=== PATIENT | female | born 1985 | race Caucasian/White ===

== ENCOUNTER → 2020-03-31 | Outpatient (CLI) | payer BC, SELFPAY ==
[2019-08-01 12:34] VITALS: BMI 29.2
[2020-04-05 16:57] LABS: HPV Reflexed? NOT INDICATED
== END | disposition home or self-care (01) ==
PROVIDERS: Referring Provider Obstetrics & Gynecology; Visit Provider Obstetrics & Gynecology
DX: Z12.4 Encounter for screening for malignant neoplasm of cervix (principal)
CPT/HCPCS: 88175; G0145

== ENCOUNTER 2021-09-13 11:37 | Outpatient (CLI) | payer BC, SELFPAY ==
[2021-09-16 15:29] LABS: HPV Reflexed? NOT INDICATED
== END 2021-09-13 23:59 | disposition short-term general hospital (02) ==
LOC: LABSPEC 11:42
PROVIDERS: Visit Provider Obstetrics & Gynecology
DX: Z12.4 Encounter for screening for malignant neoplasm of cervix (principal)
CPT/HCPCS: 88175; G0145

== ENCOUNTER → 2022-06-14 | Outpatient (CLI) | payer MEDICAID, SELFPAY | END | disposition home or self-care (01) | LOC: LABSPEC 16:54 | PROVIDERS: Visit Provider Obstetrics & Gynecology | DX: N89.8 Other specified noninflammatory disorders of vagina (principal) | CPT/HCPCS: 87529 ==

== ENCOUNTER 2025-02-12 23:12 | Emergency (ER) | payer OTHER, SELFPAY ==
[2025-02-12 23:12] VITALS: BP 177/99; PULSE 132; RESP 22; TEMP 37.1; O2SAT 100; BMI 39.5
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
[2025-02-12] MEDS: Lorazepam 2 MG/ML WCH Syringe 1 MG IM (23:51)
--- OUTSIDE RECORDS SUMMARY | 2025-02-12 23:52 | XMS RPT_ITS | CCD ---
Author Organization [facility] Team Providers Care Twisting Press Operator Name Role Phone Isael Sanders Attending Unavailable Allison Yates Attending Unavailable Allison Yates Primary Care Provider Allison Yates Primary Care Provider ALLISON YATES Primary Care Unavailable NATALIA ABDUL Referring Unavailable NATALIA ABDUL Attending Unavailable ALLISON YATES Primary Care Unavailable ALLISON YATES Primary Care Unavailable NATALIA ABDUL Referring Unavailable Medications Current Medications Medication Drug Class(es) Dates Sig (Normalized) Sig (Original) amoxicillin 875 mg oral tablet (1 source) Penicillin-class Antibacterial Start: 08-01-2019 take 875 mg by mouth twice daily Amoxicillin Active 875 MG PO TWICE A DAY August 01, 2019 1:00am busPIRone hydrochloride 5 mg oral tablet (7 sources) Start: 11-18-2023 End: 11-26-2024 take 1 tablet by mouth once daily busPIRone (BUSPAR) 5 mg tablet Take 1 tablet by mouth once daily. 60 tablet 11/18/2023 11/26/2024 Discontinued Comment on above: Take by mouth. Take 1 tablet by ej th once daily. hydroCHLOROthiazide 25 mg / losartan potassium 100 mg oral tablet (9 sources) Thiazide Diuretic, Angiotensin 2 Receptor Cheikh Start: 11-01-2022 End: 11-18-2023 take 1 tablet by mouth once daily losartan-hydroCH LOROthiazide (HYZAAR) 100-25 mg per tablet Take 1 tablet by mouth once daily. 60 tablet 11/18/2023 Active Comment on above: Take 1 tablet by ej th once daily. naltrexone hydrochloride 50 mg oral tablet (1 source) Opioid Antagonist Start: 02-21-2023 End: 05-22-2023 take 37-37.9 tablets by mouth once daily naltrexone (TREXAN) 50 mg tablet Indications: Anxiety with depression , IFG (impaired fasting glucose) , Class 2 severe obesity with serious comorbidity and body mass index (BMI) of 37.0 to 37.9 in adult, unspecified obesity type (HCC) Take 0.5 tablets by mouth once daily. 45 tablet 0 02/21/2023 05/22/2023 Active Comment on above: Take 0.5 tablets by mouth once daily. valACYclovir 500 mg oral tablet (10 sources) Herpesvirus Nucleoside Analog DNA Polymerase Inhibitor, Herpes Simplex Virus Nucleoside Analog DNA Polymerase Inhibitor, Herpes Zoster Virus Nucleoside Analog DNA Polymerase Inhibitor Start: 11-18-2023 take 1 tablet by mouth twice daily valACYclovir (VALTREX) 500 mg tablet Take 1 tablet by mouth two times a day. For 3 days. Start as soon as outbreak occurs. 60 tablet 2 11/18/2023 Active Start: 06-14-2022 End: 11-18-2023 take 1 tablet by mouth once daily valACYclovir (VALTREX) 1 gram tablet Take 1 tablet by mouth once daily. 90 tablet 0 10/01/2023 11/18/2023 Discontinued Comment on above: Take by mouth. Take 1 tablet by ej th once daily. Take 1 tablet by ej th two times a day. For 3 days. Start as soon as outbreak occurs. Completed/Discontinued Medications Medication Drug Class(es) Dates Sig (Normalized) Sig (Original) 12 hr buPROPion hydrochloride 150 mg extended release oral tablet (3 sources) Aminoketone Start: 01-18-2023 End: 11-18-2023 take 37-37.9 tablets by mouth twice daily buPROPion SR (WELLBUTRIN SR) 150 mg 12 hr tablet Indications: Class 2 severe obesity with serious comorbidity and body mass index (BMI) of 37.0 to 37.9 in adult, unspecified obesity type (HCC) , Anxiety with depression , Craving for particular food Take 1 tablet by mouth twice daily. 180 tablet 0 01/18/2023 11/18/2023 Discontinued Comment on above: Take 1 tablet by ej th twice daily. docusate sodium 50 mg / sennosides, halfway 8.6 mg oral tablet (1 source) Start: 06-09-2015 End: 12-01-2018 take 1 tablet by mouth once daily as needed Sennosides-Docusa te Sodium Discontinued 1 - 2 TABLET PO DAILY NEEDED June 09, 2015 12:00am December 01, 2018 6:19am fluconazole 200 mg oral tablet (1 source) Azole Antifungal Start: 12-01-2018 End: 08-01-2019 take 200 mg by mouth once daily Fluconazole Discontinued 200 MG PO DAILY December 01, 2018 12:00am August 01, 2019 1:10pm As instructed; follow-up with PCP should symptoms not resolve metFORMIN hydrochloride 500 mg oral tablet (3 sources) Biguanide Start: 02-21-2023 End: 11-18-2023 take 37-37.9 tablets by mouth twice daily at mealtime metFORMIN (GLUCOPHAGE) 500 mg tablet Indications: IFG (impaired fasting glucose) , Class 2 severe obesity with serious comorbidity and body mass index (BMI) of 37.0 to 37.9 in adult, unspecified obesity type (HCC) Take 1 tablet by mouth twice daily with meals. 180 tablet 0 02/21/2023 11/18/2023 Discontinued Comment on above: Take 1 tablet by ej twice daily with meals. naproxen 250 mg oral tablet (1 source) Nonsteroidal Anti-inflammatory Drug Start: 06-09-2015 End: 12-01-2018 take 250-500 mg by mouth every twelve hours as needed Naproxen Discontinued 250 - 500 MG PO EVERY 12 HOURS NEEDED June 09, 2015 11:51pm December 01, 2018 6:19am oseltamivir 75 mg oral capsule (1 source) Neuraminidase Inhibitor Start: 08-01-2019 End: 08-07-2019 take 1 capsule by mouth twice daily Oseltamivir (Tamiflu) 75 mg capsule Discontinued 75 MG PO TWICE A DAY 10 August 01, 2019 1:00am August 07, 2019 1:10am Vits (1 source) Start: 06-08-2015 End: 12-01-2018 Vits Discontinued 1 TABLET DAILY June 08, 2015 12:00am December 01, 2018 6:19am tobramycin 3 mg/ml ophthalmic solution (1 source) Aminoglycoside Antibacterial Start: 12-01-2018 End: 08-01-2019 Tobramycin Discontinued 1 DRP OPHTHALMIC Q2H December 01, 2018 12:00am August 01, 2019 1:10pm While awake for 5 days to right eye Problems Active Problems Problem Classification Problem Date Documented Date Episodic/Chronic Anxiety disorders (9 sources) Mixed anxiety and depressive disorder; Translations: [Other specified anxiety disorders] Onset: 02-20-2023 Chronic Immunizations and screening for infectious disease (1 source) Patient encounter status; Translations: [Encounter for screening for human papillomavirus (HPV)] 11-18-2023 Episodic Inflammation; infection of eye (except that caused by tuberculosis or sexually transmitteddisease) (1 source) Conjunctivitis; Translations: [Unspecified conjunctivitis] Episodic Mycoses (1 source) Candidiasis of vagina; Translations: [Candidiasis of vagina] Episodic Other female genital disorders (1 source) Other specified noninflammatory disorders of vagina; Translations: [Other specified noninflammatory disorders of vagina] Onset: 06-19-2022 Episodic Other nutritional; endocrine; and metabolic disorders (9 sources) Severe obesity; Translations: [Morbid (severe) obesity due to excess calories] Onset: 02-20-2023 Chronic Other screening for suspected conditions (not mental disorders or infectious disease) (7 sources) Encounter for screening for malignant neoplasm of cervix; Translations: [Patient encounter status] Onset: 11-07-2021 11-18-2023 Episodic Past or Other Problems Problem Classification Problem Date Documented Da te Episodic/Chronic Diabetes mellitus without complication (9 sources) Impaired fasting glycemia; Translations: [Impaired fasting glucose] Onset: 02-20-2023 Episodic Nonmalignant breast conditions (6 sources) Breast finding ; Translations: [Dense breast] Onset: 02-05-2024 02-05-2024 Episodic Skin and subcutaneous tissue infections (8 sources) Pilonidal cyst with abscess; Translations: [Pilonidal cyst with abscess] Onset: 02-17-2007 02-17-2007 Episodic Unclassified (2 sources) Patient encounter status 11-26-2024 Results Test Name Value Interpretation Reference Range Facility DBT Breast - bilateral trinae chiara 01-28-2025 IMPRESSION: There is no mammographic evidence of malignancy in either breast. Routine screening mammogram is recommended. Annual mammogram will be due in 1 year. BI-RADS Category 1: Negative RISK: Based on the Tyrer-Cuzick (TC) risk assessment model, this patient has a 13.9% lifetime risk of developing breast cancer, meaning they are at average risk for developing breast cancer. However, this is only an estimate based on available history provided on the patient's questionnaire. We encourage all patients to talk with their providers about these results, further recommendations for managing breast health, and appropriate supplemental screening options if the patient has dense breast tissue. Interpreting Radiologist: Oralia Sanders M.D. Electronically signed on: 01/28/2025 Quartz Cutter: ADAM Dickrikrissy Date/Time: Jan 28 2025 9:07A Dictated by: ORALIA SANDERS MD This examination was interpreted and the report reviewed and electronically signed by: ORALIA SANDERS MD on Jan 28 2025 12:19PM [facility] DIVISION OF RADIOLOGY * * *Final Report* * * DATE OF EXAM: Jan 28 2025 9:38AM [facility] 0582 - ALEX SCREENING W BALDEMAR / PROCEDURE REASON: Encounter for screening mammogram for breast cancer * * * * Physician Interpretation * * * * RESULT: [facility] [address] [id number] #[id number] - [facility] SCREENING W BALDEMAR HISTORY: 39 year-old patient seen for screening. Patient is asymptomatic in both breasts. Patient states no personal history of breast cancer. COMPARISON STUDIES: The present examination has been compared to a prior imaging study dated 02/03/2024 (mammogram). MAMMOGRAM TECHNIQUE: The study was acquired using full field digital technology and interpreted from soft copy. Digital Breast Tomosynthesis (DBT) images were obtained and used to assist in the interpretation of this examination. MAMMOGRAM FINDINGS: The breasts are heterogeneously dense, which may obscure small masses. No suspicious masses, calcifications or other abnormalities are seen in either breast. There are no significant interval changes. DIVISION OF RADIOLOGY Provider, [facility] - 01/28/2025 * * *Final Report* * * DATE OF EXAM: Jan 28 2025 9:38AM [facility] 0582 - ALEX SCREENING W BALDEMAR / PROCEDURE REASON: Encounter for screening mammogram for breast cancer * * * * Physician Interpretation * * * * RESULT: [facility] [address] [place] [address] #[id number] - ALEX SCREENING W BALDEMAR HISTORY: 39 year-old patient seen for screening. Patient is asymptomatic in both breasts. Patient states no personal history of breast cancer. COMPARISON STUDIES: The present examination has been compared to a prior imaging study dated 02/03/2024 (mammogram). MAMMOGRAM TECHNIQUE: The study was acquired using full field digital technology and interpreted from soft copy. Digital Breast Tomosynthesis (DBT) images were obtained and used to assist in the interpretation of this examination. MAMMOGRAM FINDINGS: The breasts are heterogeneously dense, which may obscure small masses. No suspicious masses, calcifications or other abnormalities are seen in either breast. There are no significant interval changes. IMPRESSION IMPRESSION: There is no mammographic evidence of malignancy in either breast. Routine screening mammogram is recommended. Annual mammogram will be due in 1 year. BI-RADS Category 1: Negative RISK: Based on the Tyrer-Cuzick (TC) risk assessment model, this patient has a 13.9% lifetime risk of developing breast cancer, meaning they are at average risk for developing breast cancer. However, this is only an estimate based on available history provided on the patient's questionnaire. We encourage all patients to talk with their providers about these results, further recommendations for managing breast health, and appropriate supplemental screening options if the patient has dense breast tissue. Interpreting Radiologist: Oralia Sanders M.D. Electronically signed on: 01/28/2025 Quartz Cutter: ADAM Transcribe Date/Time: Jan 28 2025 9:07A Dictated by: ORALIA SANDERS MD This examination was interpreted and the report reviewed and electronically signed by: ORALIA SANDERS MD on Jan 28 2025 12:19PM EST [facility] Radiology Study observation (narrative) [facility] DBT Breast - bilateral scree ningOrdered By: [facility] Provider on 01-28-2025 [facility] ALEX SCREENING W TOMOon 01-28 ALEX SCREENING W BALDEMAR * * *Final Report* * * DATE OF EXAM: Jan 28 2025 9:38AM [facility] 0582 - ALEX SCREENING W BALDEMAR / PROCEDURE REASON: Encounter for screening mammogram for breast cancer * * * * Physician Interpretation * * * * RESULT: [place] [address] [id number] #[id number] - ALEX SCREENING W BALDEMAR HISTORY: 39 year-old patient seen for screening. Patient is asymptomatic in both breasts. Patient states no personal history of breast cancer. COMPARISON STUDIES: The present examination has been compared to a prior imaging study dated 02/03/2024 (mammogram). MAMMOGRAM TECHNIQUE: The study was acquired using full field digital technology and interpreted from soft copy. Digital Breast Tomosynthesis (DBT) images were obtained and used to assist in the interpretation of this examination. MAMMOGRAM FINDINGS: The breasts are heterogeneously dense, which may obscure small masses. No suspicious masses, calcifications or other abnormalities are seen in either breast. There are no significant interval changes. IMPRESSION: There is no mammographic evidence of malignancy in either breast. Routine screening mammogram is recommended. Annual mammogram will be due in 1 year. BI-RADS Category 1: Negative RISK: Based on the Tyrer-Cuzick (TC) risk assessment model, this patient has a 13.9% lifetime risk of developing breast cancer, meaning they are at average risk for developing breast cancer. However, this is only an estimate based on available history provided on the patient's questionnaire. We encourage all patients to talk with their providers about these results, further recommendations for managing breast health, and appropriate supplemental screening options if the patient has dense breast tissue. Interpreting Radiologist: Oralia Sanders M.D. Electronically signed on: 01/28/2025 Quartz Cutter: ADAM Transcribe Date/Time: Jan 28 2025 9:07A Dictated by: ORALIA SANDERS MD This examination was interpreted and the report reviewed and electronically signed by: ORALIA SANDERS MD on Jan 28 2025 12:19PM EST [id number] Normal [facility] CNOVon 11-26-2024 CNOV Office Visit (OBGYWM ) HUA AYALA ([id number]) 1985 F Date Time Provider Department 11/26/24 8:15 AM NATALIA ABDUL OBKARENWTonny During your visit today, we recorded the following information about you: Blood pressure Weight Height Last Period 120/68 100.7 kg 1.6 m 11/08/24 Natalia Abdul APRN.CNP 11/26/2024 8:41 AM Signed [employer] offered: Patient declines. Hua is a 39 year old who presents for an annual gynecologic exam without complaints. Still get period: Yes, every 30 days, lasting 4 days LMP: 11/08/2024 Bleeding amount bothersome: No Bleeding between periods: No Period symptoms: Mood change control frequency: Always Contraception: Vasectomy HPV vaccine: no HPV:negative Last pap smear: 11/18/2023 normal History of abnormal pap: No Bothersome pelvic pain: No Last mammogram: 02/2024 normal OB History Gravida0 Para0 Term0 Preterm0 AB0 Living0 SAB0 IAB0 Ectopic0 Multiple0 Live Births0 Varnish Maker History LMP: 11/08/2024, Having periods Age at Menarche: 9 Age at First : Age at Menopause: Varnish Maker History Comments: Sexual Activity: Yes; Male Contraception: Vasectomy Menstrual Tracking History Flowsheet Row Office Visit from 11/26/2024 in OB/Gynecology Appointment from 11/18/2024 in OB/Gynecology Period Cycle (Days) 4 4 Period Duration (Days) 4 4 Menstrual Flow Light Light PAST MEDICAL HISTORY Diagnosis Date Anxiety and depression Essential hypertension age 34 IFG (impaired fasting glucose) PAST SURGICAL HISTORY Procedure Laterality Date NONE FAMILY HISTORY Problem Relation Age of Onset Obesity Mother Hypertension Mother Hypertension Sister Obesity Sister Heart Attack Maternal Grandfather SOCIAL HISTORY Social History Tobacco Use Smoking status: Never Smokeless tobacco: Never Vaping Use Vaping status: Never Used Substance Use Topics Alcohol use: No Drug use: No REVIEW OF SYSTEMS Abdomen: No abdominal pain, nausea, vomiting, diarrhea, or constipation. No bloating, early satiety, indigestion, or increased flatulence. Bladder: No dysuria, gross hematuria, urinary frequency, urinary urgency, or incontinence. Breast: No breast lumps, nipple d/c, overlying skin changes, redness or skin retraction. Allergies and current medication updated:Yes SENSITIVE EXAM: The sensitive examination was discussed with the Patient or Patient's Authorized Physical Chemistry Teacher. As applicable, any other physician, advance practice provider, medical student, or other health professional student that will be observing or involved in the sensitive examination for educational or training purposes was discussed with the Patient or Authorized Physical Chemistry Teacher. The Patient or Authorized Physical Chemistry Teacher has agreed to proceed with the sensitive examination. (Sensitive examination includes inspection and/or palpation of the breasts, pelvis, prostate and anorectal regions). EXAM: BP 120/68 Ht 5' 3 (1.60m) Wt 222 lb (100.7kg) LMP 11/08/2024 BMI 39.34 kg/(m2). GENERAL: pleasant, female in no apparent distress HEENT: Normocephalic, atraumatic, mucus membranes moist, and no lesions NECK: Supple, full range of motion, no adenopathy, and thyroid normal DERMATOLOGY: Normal, without lesions, non-icteric, and non-hirsute BREAST: soft, non-tender, symmetric, no dominant mass, normal nipple-areolar complex, no lymphadenopathy, and no nipple discharge CHEST: Normal inspiratory effort ABDOMEN: soft, non-tender, and no masses PELVIC: external genitalia normal, normal Bartholin's glands, urethra, Kibler's glands, no vulvar lesions, no cervical lesions, + ectropion cervix, good vaginal support, physiologic discharge present, normal appearing perineal body and perianal region BIMANUAL: uterus normal size, shape and consistency, no adnexal masses, and non-tender RECTOVAGINAL: deferred. NEURO: alert and oriented x3,exam grossly non-focal EXTREMITIES: normal ASSESSMENT/PLAN: 1) Health maintenance: Pap/HPV up to date 2023. Mammogram ordered. Nutrition, exercise and routine health maintenance exams reviewed. HPV vaccine: interested, literature given 2) Contraception: vasectomy. 3) STD screening: Declined STD check. 4) Follow up one year or sooner as needed Dense breast - ICD9: 793.82, ICD10: R92.30 - Reviewed supplemental screening option SAYDA Townsend Emily, APRN.CNP 11/26/2024 8:27 AM Signed A 3-dose schedule is recommended for people who get the first dose on or after their 15th birthday, and for people with certain immunocompromising conditions. In a 3-dose series, the second dose should be given 1-2 months after the first dose, and the third dose should be given 6 months after the first dose (0, 1-2, 6-month schedule). The minimum intervals are 4 weeks between the first and second dose, 12 weeks between the second a (more content not included)... Normal [facility] CNCOon 02-04-2024 CNCO HNO ID: [id number] Author: COORDINATOR, MAMMOGRAPHY, ? Service: ? Author Type: Physician Type: Letter Filed: 02/04/2024 12:44 Note Text: February 04, 2024 PID: [id number] Hua TeresoCrista Ayala [address] [place] [address] Dear Crista Hinaismael, We are pleased to inform you that the results of your recent breast imaging exam on 02/03/2024 are normal. Your mammogram demonstrates that you have dense breast tissue, which could hide abnormalities. Dense breast tissue, in and of itself, is a relatively common condition. Therefore, this information is not provided to cause undue concern; rather, it is to raise your awareness and promote discussion with your health care provider regarding the presence of dense breast tissue in addition to other risk factors. Early detection of cancer is very important. We also understand recommendations regarding breast cancer screening are controversial. Please discuss with your primary care provider which strategy is best for you and whether a mammogram is right for you. Your imaging studies and report will be kept on file at [facility] as part of your permanent medical record and are available for your continuing care. Thank you for allowing us to help in meeting your health care needs. Sincerely, Dr. Waters Interpreting Radiologist [facility] (Normal over 40) Normal [facility] SCREENINGon 02-03-2024 [facility] SCREENING * * *Final Report* * * DATE OF EXAM: Feb 03 2024 8:40AM [facility] 0581 - [facility] SCREENING / PROCEDURE REASON: Encounter for screening mammogram for breast cancer * * * * Physician Interpretation * * * * RESULT: #[id number] - [facility] SCREENING BILATERAL DIGITAL SCREENING MAMMOGRAM WITH CAD: 02/03/2024 HISTORY: Encounter For Screening Mammogram For Breast Cancer /Screening Mammogram - patient reports NO breast symptoms /baseline mammogram. RESULT: TECHNIQUE: The study was acquired using full field digital technology and interpreted from soft copy. Current study was also evaluated with a Computer Aided Detection (CAD). No prior exams were available for comparison. The breasts are heterogeneously dense, which may obscure small masses. No significant masses, calcifications, or other findings are seen in either breast. IMPRESSION: NEGATIVE There is no mammographic evidence of malignancy. A 1 year screening mammogram is recommended. Destinee spencer/collins:02/04/2024 12:44:26 Pitch Flaker(s): RT Rafael(R)(M), [facility] letter sent: Normal over 40 Mammogram BI-RADS: 1 Negative Multiple national specialty organizations have released breast cancer screening guidelines for women at average risk for developing breast cancer - guidelines that are based on both evidence and opinion, yet differ on when to start and how often to screen for breast cancer. With representation from Breast Imaging, Internal Medicine, Women's Health, Family Medicine, and Medical/Surgical Oncology, the [facility] has carefully reviewed the data and reached the following consensus: 1) All women should engage in shared decision-making with their providers to decide when to start and how often to screen; 2) All women should have the opportunity to start screening mammography at age 40; 3) For women ages 45-55, we recommend annual screening mammograms; 4) For women ages 55 and over, we support both the transition from an annual to a biennial interval if this aligns more with patient's values and preferences, or continuation with annual screening; 5) All women should discuss with their providers when to stop screening mammograms. Quartz Cutter: Collins Transcribe Date/Time: Feb 03 2024 8:31A Dictated by: DESTINEE WATERS MD This examination was interpreted and the report reviewed and electronically signed by: DESTINEE WATERS MD on Feb 04 2024 12:44PM EST [id number] Normal [facility] Miscellaneous Lab Procedureo n 06-22-2022 [facility] [facility] [place] Normal [facility] Comment on above: Order Comment: [id number] HSV 1/2 SWAB Result Comment: TEST RESULT LIMITS HSV 1/2 PCR HSV-1 DNA Negative Negative HSV-2 DNA Positive Abnormal Negative This test was developed and its performance characteristics determined by [employer]. It has not been cleared or approved by the U.S. Food and Drug Administration. The FDA has determined that such clearance or approval is not necessary. This test is used for clinical purposes. It should not be regarded as investigational or research. TESTING PERFORMED AT [facility]. ORIGINAL REPORT ON FILE IN LAB CONTAINS ADDITIONAL TEST SITE INFORMATION. Performed By: #### L 3400.1645, L801.1541 #### [facility] [address] [place], [address] HSV 1/2 by PCRon 06-14-2022 HSV 1 PCR Normal [facility] Comment on above: Result Comment: NOT ORDERABLE, ORDER MISC Performed By: #### L [id number], [id number] #### [facility] [address] [place], [address] HSV 2 PCR Normal [facility] Comment on above: Result Comment: NOT ORDERABLE, ORDER MISC Performed By: #### L 3400.1645, L801.1541 #### [facility] [address] [place], [address] PAP IG w/Reflex HR HPV Aptim aon 09-16-2021 ADEQ Comment Normal . [facility] Comment on above: Order Comment: CYTOL OGY INFORMATION: - CLINICAL INFORMATION: ANNUAL - Non - DATE LMP/MENOPAUSE: 08/30/21 LMP - COLLECTION VIAL: Thin Prep Vial - HABILITATIVE INTERVENTIONIST SOURCE: CERVICAL/ENDOCERVICAL - COLLECTION TECHNIQUE: BRUSH/SPATULA Specimen Comment: [id number] Specimen Comment: No. of containers..01 ThinPrep Vial Result Comment: Sati sfactory for evaluation. Endocervical and/or squamous metaplastic cells (endocervical component) are present. Performed By: #### L [id number] #### [facility] [address] [place], [place], [id number] COMMENT Comment Normal . [facility] Comment on above: Order Comment: CYTOL OGY INFORMATION: - CLINICAL INFORMATION: ANNUAL - Non - DATE LMP/MENOPAUSE: 08/30/21 LMP - COLLECTION VIAL: Thin Prep Vial - HABILITATIVE INTERVENTIONIST SOURCE: CERVICAL/ENDOCERVICAL - COLLECTION TECHNIQUE: BRUSH/SPATULA Specimen Comment: [id number] Specimen Comment: No. of containers..01 ThinPrep Vial Result Comment: This liquid based ThinPrep(R) pap test was screened with the use of an image guided system. Performed By: #### L [id number] #### [facility] [address] [place], [place], [id number] DIAG Comment Normal . [facility] Comment on above: Order Comment: CYTOL OGY INFORMATION: - CLINICAL INFORMATION: ANNUAL - Non - DATE LMP/MENOPAUSE: 08/30/21 LMP - COLLECTION VIAL: Thin Prep Vial - HABILITATIVE INTERVENTIONIST SOURCE: CERVICAL/ENDOCERVICAL - COLLECTION TECHNIQUE: BRUSH/SPATULA Specimen Comment: [id number] Specimen Comment: No. of containers..01 ThinPrep Vial Result Comment: NEGA TIVE FOR INTRAEPITHELIAL LESION OR MALIGNANCY. Performed By: #### L [id number] #### [facility] [address] [place], [place], [id number] HPV RFLX Comment Normal . [facility] Comment on above: Order Comment: CYTOL OGY INFORMATION: - CLINICAL INFORMATION: ANNUAL - Non - DATE LMP/MENOPAUSE: 08/30/21 LMP - COLLECTION VIAL: Thin Prep Vial - HABILITATIVE INTERVENTIONIST SOURCE: CERVICAL/ENDOCERVICAL - COLLECTION TECHNIQUE: BRUSH/SPATULA Specimen Comment: [id number] Specimen Comment: No. of containers..01 ThinPrep Vial Result Comment: The HPV DNA reflex criteria were not met with this specimen result therefore, no HPV testing was performed. Performed at: [address] [place] [id number] Snack Bar Attendant: Yue Polanco MD, Phone: [phone] Performed By: #### L [id number] #### [facility] [address] [place], [place], [id number] PAPSMR Comment Normal . [facility] Comment on above: Order Comment: CYTOL OGY INFORMATION: - CLINICAL INFORMATION: ANNUAL - Non - DATE LMP/MENOPAUSE: 08/30/21 LMP - COLLECTION VIAL: Thin Prep Vial - HABILITATIVE INTERVENTIONIST SOURCE: CERVICAL/ENDOCERVICAL - COLLECTION TECHNIQUE: BRUSH/SPATULA Specimen Comment: [id number] Specimen Comment: No. of containers..01 ThinPrep Vial Result Comment: The Pap smear is a screening test designed to aid in the detection of premalignant and malignant conditions of the uterine cervix. It is not a diagnostic procedure and should not be used as the sole means of detecting cervical cancer. Both false-positive and false-negative reports do occur. Performed By: #### L [id number] #### [facility] [address] [place], [place], [address] PERFORM Comment Normal . [facility] Comment on above: Order Comment: CYTOL OGY INFORMATION: - CLINICAL INFORMATION: ANNUAL - Non - DATE LMP/MENOPAUSE: 08/30/21 LMP - COLLECTION VIAL: Thin Prep Vial - HABILITATIVE INTERVENTIONIST SOURCE: CERVICAL/ENDOCERVICAL - COLLECTION TECHNIQUE: BRUSH/SPATULA Specimen Comment: [id number] Specimen Comment: No. of containers..01 ThinPrep Vial Result Comment: Manoj Siu Econometrician (ASCP) Performed By: #### L [id number] #### [facility] [address] [place], [place], [id number] PAP IG w/Reflex HR HPV Aptim aon 09-15-2021 COMM . Normal . [facility] Comment on above: Order Comment: CYTOL OGY INFORMATION: - CLINICAL INFORMATION: ANNUAL - Non - DATE LMP/MENOPAUSE: 08/30/21 LMP - COLLECTION VIAL: Thin Prep Vial - HABILITATIVE INTERVENTIONIST SOURCE: CERVICAL/ENDOCERVICAL - COLLECTION TECHNIQUE: BRUSH/SPATULA Specimen Comment: [id number] Specimen Comment: No. of containers..01 ThinPrep Vial Performed By: #### L [id number] #### [facility] [address] [place], [address] Vital Signs Date Time Vital Sign Value Performing Clinician Sarah iyer 11-26-2024 08:19-0400 Body height 160 cm Natalia Halarisa DOUGH CATCHER.WIRE COILER MACHINE OPERATOR Work Phone: [facility] 11-26-2024 08:19-0400 Body mass index (BMI) [Ratio] 39.33 kg/m2 Natalia Haury DOUGH CATCHER.WIRE COILER MACHINE OPERATOR Work Phone: [facility] 11-26-2024 08:19-0400 Body weight 100.7 kg Natalia Haury DOUGH CATCHER.WIRE COILER MACHINE OPERATOR Work Phone: [facility] 11-26-2024 08:19-0400 Diastolic blood pressure 68 mm[Hg] Natalia Haury DOUGH CATCHER.WIRE COILER MACHINE OPERATOR Work Phone: [facility] 11-26-2024 08:19-0400 Systolic blood pressure 120 mm[Hg] Natalia Haury DOUGH CATCHER.WIRE COILER MACHINE OPERATOR Work Phone: [facility] 11-18-2023 07:25-0400 Body height 160 cm Natalia Haury DOUGH CATCHER.WIRE COILER MACHINE OPERATOR Work Phone: [facility] 11-18-2023 07:25-0400 Body weight 94.35 kg Natalia Haury DOUGH CATCHER.WIRE COILER MACHINE OPERATOR Work Phone: [facility] 11-18-2023 07:25-0400 Diastolic blood pressure 74 mm[Hg] Natalia Haury DOUGH CATCHER.WIRE COILER MACHINE OPERATOR Work Phone: [facility] 11-18-2023 07:25-0400 Systolic blood pressure 122 mm[Hg] Natalia Haury DOUGH CATCHER.WIRE COILER MACHINE OPERATOR Work Phone: [facility] 02-21-2023 10:30-0400 Body weight 93.44 kg Erika Clayton DOUGH CATCHER.WIRE COILER MACHINE OPERATOR Work Phone: [facility] 02-21-2023 10:30-0400 Diastolic blood pressure 82 mm[Hg] Erika Clayton APRN.CNP Work Phone: [facility] 02-21-2023 10:30-0400 Systolic blood pressure 112 mm[Hg] Erika Clayton APRN.CNP Work Phone: [facility] Encounters Encounter Date Encounter Type Care Provider Facility Start: 01-28-2025 ambulatory ALLISON YATES Fac ility:[facility] Start: 01-28-2025 End: 01-28-2025 Subsequent hospital visit by physician Screen Mammo [facility] Comment on above: Encounter for screen ing mammogram for breast cancer [Z12.31] Start: 11-26-2024 End: 11-26-2024 E-mail encounter from caregiver Natalia Abdul APRN.CNP Work Phone: OB/Gynecology Start: 11-26-2024 End: 11-26-2024 ambulatory Natalia Abdul APRN.CNP Work Phone: OB/Gynecology Comment on above: Dense Breasts - Supp lemental Screening Start: 11-26-2024 End: 11-26-2024 Patient encounter procedure Natalia Abdul APRN.CNP Work Phone: OB/Gynecology Comment on above: Encounter for gyneco logical examination (general) (routine) without abnormal findings (Primary Dx); Encounter for screening mammogram for breast cancer; Dense breast Start: 11-26-2024 End: 11-26-2024 Patient encounter status Natalia Abdul APRN.CNP Work Phone: [facility] Start: 02-04-2024 Documentation procedure Mammog cathy Coordinator [facility] Department Start: 02-04-2024 Letter encounter Mammography Coordinator [facility] Department Start: 02-03-2024 End: 02-03-2024 ambulatory ALLISON YATES Facility:[facility] Start: 02-03-2024 End: 02-03-2024 Subsequent hospital visit by physician Screen Mammo [facility] Comment on above: Encounter for screen ing mammogram for breast cancer [Z12.31] Start: 11-18-2023 End: 11-18-2023 Patient encounter procedure Natalia Abdul APRN.CNP Work Phone: OB/Gynecology Comment on above: Encounter for gyneco logical examination (general) (routine) without abnormal findings (Primary Dx); Encounter for screening mammogram for breast cancer; Cervical cancer screening; Special screening examination for human papillomavirus (HPV) Start: 11-18-2023 End: 11-18-2023 Patient encounter status Natalia Abdul APRN.WIRE COILER MACHINE OPERATOR Work Phone: [facility] Start: 06-25-2023 Refill Erika ELLSION RN.WIRE COILER MACHINE OPERATOR Work Phone: OB/Gynecology Comment on above: Refill Request Start: 02-21-2023 End: 02-21-2023 Patient encounter procedure Erika Clayton APRN.WIRE COILER MACHINE OPERATOR Work Phone: OB/Gynecology Comment on above: Anxiety with depress ion (Primary Dx); IFG (impaired fasting glucose); Class 2 severe obesity with serious comorbidity and body mass index (BMI) of 37.0 to 37.9 in adult, unspecified obesity type (HCC) Start: 06-14-2022 End: 06-14-2022 Patient encounter procedure [facility], Specimen Start: 06-14-2022 End: 06-14-2022 ambulatory Isael Sanders Facility:[facility] Start: 09-13-2021 End: 09-14-2021 ambulatory Allison Yates Facility:[facility] Procedures Date Procedure Procedure Detail Performing Clinician Start: 01-28-2025 Screening digital br east tomosynthesis bi Natalia Abdul APRN.WIRE COILER MACHINE OPERATOR Work Phone: Plan of Treatment Date Care Activity Detail Author Start: 11-17-2028 Screening for malign ant neoplasm of cervix [facility] Start: 09-13-2026 Screening for malign ant neoplasm of cervix [facility] Start: 01-28-2026 Screening for malign ant neoplasm of breast Mammogram Screening [facility] Start: 11-26-2025 End: 11-26-2025 Patient encounter procedure 11/26/2025 9:45 AM EDT Office Visit OB/Gynecology [address] [address] Natalia Abdul APRN.[facility] [address] [place] [address] annual OB/Gynecology Comment on above: annual Start: 05-03-2025 Influenza vaccination Influenz a Vaccine (Season Ended) [facility] Start: 02-02-2025 Screening for malign ant neoplasm of breast Mammogram Screening [facility] Start: 01-28-2025 End: 01-28-2025 Patient encounter procedure 01/28/2025 9:10 AM EDT Appointment Mammogram [address] [place] [address] Mammogram Start: 11-18-2024 End: 11-18-2024 Patient encounter procedure 11/18/2024 7:15 AM EDT Office Visit OB/Gynecology [address] [place] [address] Natalia Abdul APRN.WIRE COILER MACHINE OPERATOR [address] [place] [address] annual OB/Gynecology Comment on above: annual Start: 05-03-2024 Covid-19 Vaccine ( season) Covid-19 Vaccine ( season) [facility] Start: 05-03-2024 Influenza vaccination [facility] Start: 2023 Screening for malign ant neoplasm of breast Mammogram Screening [facility] Start: 05-03-2023 Covid-19 Vaccine ( season) Covid-19 Vaccine ( season) [facility] Start: 05-03-2023 Influenza vaccination [facility] Start: 06-14-2022 Procedure [facility] Work Phone: Start: 06-14-2022 Iadna herpes somplx virus amplified probe tq HSV DNA AMP PROBE [facility] Work Phone: Start: 2013 HPV TESTING HPV TESTING [facility] Start: 2004 PAP TESTING PAP TESTING [facility] Start: 2002 Hepatitis B Vaccine (1 of 3 - 19+ 3-dose series) Hepatitis B Vaccine (1 of 3 - 19+ 3-dose series) [facility] Start: 2002 Urine microalbumin profile [facility] Start: 2001 HEPATITIS C SCREENING HEPATITIS C [facility] Start: 2001 Hepatitis C screening Hepatitis C [facility] Start: 2001 HIV SCREENING HIV SCREENING [facility] Start: 2001 HIV screening HIV Screening [facility] Start: 02-07-1984 COVID-19 VACCINE (#1) COVID-19 VACCI NE (#1) [facility] Start: 1983 HEPATITIS B (1 of 3 - 3-dose series) HEPATITIS B (1 of 3 - 3-dose series) [facility] End: 12-26-2025 DBT Breast - bilateral screening ALEX SCREENING W [facility] Radiology Routine Encounter for screening mammogram for breast cancer 1 Occurrences starting 11/26/2024 until 12/26/2025 [facility] Work Phone: Comment on above: 1 Occurrences starti ng 11/26/2024 until 12/26/2025 End: 12-17-2024 MG Breast Screening ALEX SCREENING Radiology Routine Encounter for screening mammogram for breast cancer 1 Occurrences starting 11/18/2023 until 12/17/2024 [facility] Work Phone: Comment on above: 1 Occurrences starti ng 11/18/2023 until 12/17/2024 MG Breast Screening ALEX SCREENIN G Radiology Routine Encounter for screening mammogram for breast cancer 02/03/2024 8:40 AM EDT [facility] Work Phone: PAP TEST PAP TEST Lab Leticia rosales Cervical cancer screening Special screening examination for human papillomavirus (HPV) Ordered: 11/18/2023 [facility] Work Phone: Comment on above: Ordered: 11/18/2023 Procedure [facility] Work Phone: Payers Date Payer Category Payer Private Health Insurance [employer] PPO [id number] 2024 Unknown [id number] 2022 Unknown [id number] 2021 Self-pay 2021 Unknown [id number] 2016 Private Health Insurance [facility] [id number] Unknown [id number] Unknown [id number] Social History Date Type Detail Facility Start: 08-02-2019 Tobacco smoking stat [facility] Unknown if ever smoked [facility] Work Phone: Start: 1985 Sex Assigned At Female [facility] Work Phone: Start: 01-18-2023 Tobacco smoking stat [facility] Never smoked tobacco [facility] Start: 01-18-2023 Tobacco use and exposure Smokeless tobacco non-user [facility] Start: 02-21-2023 End: 01-28-2025 Alcohol intake Current non-drinker of alcohol (finding) [facility] Start: 1985 Sex Assigned At Not on file [facility] Start: 01-18-2023 End: 11-18-2023 History of Social function [facility] Start: 01-18-2023 End: 11-18-2023 Tobacco use panel [facility] National Score (1-100), lower number is lower risk 69 [facility] Clinical Notes 02-21-2023 to 01-28-2025 Gisele Ross Mammo Tech - 01/28/2025 9:10 AM EDTPatient Natalia Hughes APRN.WIRE COILER MACHINE OPERATOR - 11/26/2024 8:14 AM EDTLekeither - Coordinator, Mammography - 02/04/2024 12:44 PM EDTPatient Instructions Note Date & Type Note Facility 01-28-2025 History of Present illness Narrative Radiology Service Progress Note PATIENT NAME: Hua AYALA DATE OF SERVICE: January 28, 2025 TIME: 9:05 AM PATIENT IDENTITY VERIFICATION COMPLETED USING TWO (2) IDENTIFIERS: Name and Date of confirmed by patient verbally. FALL SCREENING: Has the patient had 2 falls in the last year or 1 fall with injury or currently using an Ambulatory Assistive Device (Walker, Cane, Wheelchair, Crutches, etc.)? No PATIENT GENDER DATA: Assigned female at . status: : No status: NO. PATIENT RELEVANT IMPLANT DATA REVIEWED: Not Applicable PATIENT PRESENTS WITH AN IMPLANTABLE OR ATTACHED DIRECT SUPPORT PROFESSIONAL HOME HEALTH: No RADIOLOGY DEPARTMENT: Mammography PERIPHERAL IV DATA: Not applicable SIGNED BY: Josh Wolff January 28, 2025 9:05 AM documented in this encounter [facility] 01-28-2025 Note HNO ID: [id number] Author: GISELE ROSS Mammo Tech Service: ? Author Type: Hybrid Technologist Type: Progress Notes Filed: 01/28/2025 09:05 Note Text: Radiology Service Progress Note PATIENT NAME: Hua AYALA DATE OF SERVICE: January 28, 2025 TIME: 9:05 AM PATIENT IDENTITY VERIFICATION COMPLETED USING TWO (2) IDENTIFIERS: Name and Date of confirmed by patient verbally. FALL SCREENING: Has the patient had 2 falls in the last year or 1 fall with injury or currently using an Ambulatory Assistive Device (Walker, Cane, Wheelchair, Crutches, etc.)? No PATIENT GENDER DATA: Assigned female at . status: : No status: NO. PATIENT RELEVANT IMPLANT DATA REVIEWED: Not Applicable PATIENT PRESENTS WITH AN IMPLANTABLE OR ATTACHED DIRECT SUPPORT PROFESSIONAL HOME HEALTH: No RADIOLOGY DEPARTMENT: Mammography PERIPHERAL IV DATA: Not applicable SIGNED BY: Josh Wolff January 28, 2025 9:05 AM [facility] 11-26-2024 Instructions Natalia Abdul APRN.VICKI - 11/26/2024 8:27 AM EDT A 3-dose schedule is recommended for people who get the first dose on or after their 15th birthday, and for people with certain immunocompromising conditions. In a 3-dose series, the second dose should be given 1-2 months after the first dose, and the third dose should be given 6 months after the first dose (0, 1-2, 6-month schedule). The minimum intervals are 4 weeks between the first and second dose, 12 weeks between the second and third doses, and 5 months between the first and third doses. If a vaccine dose is administered after a shorter interval, it should be re-administered after another minimum interval has elapsed since the most recent dose. If the vaccination schedule is interrupted, vaccine doses do not need to be repeated (no maximum interval). documented in this encounter [facility] 11-26-2024 Note HNO ID: [id number] Author: NATALIA ABDUL APRN.VICKI Service: ? Author Type: Nurse Practitioner Type: Progress Notes Filed: 11/26/2024 08:41 Note Text: Science Technicians offered: Patient declines. Hua is a 39 year old who presents for an annual gynecologic exam without complaints. Still get period: Yes, every 30 days, lasting 4 days LMP: 11/08/2024 Bleeding amount bothersome: No Bleeding between periods: No Period symptoms: Mood change control frequency: Always Contraception: Vasectomy HPV vaccine: no HPV:negative Last pap smear: 11/18/2023 normal History of abnormal pap: No Bothersome pelvic pain: No Last mammogram: 02/2024 normal OB History Gravida0 Para0 Term0 Preterm0 AB0 Living0 SAB0 IAB0 Ectopic0 Multiple0 Live Births0 Varnish Maker History LMP: 11/08/2024, Having periods Age at Menarche: 9 Age at First : Age at Menopause: Varnish Maker History Comments: Sexual Activity: Yes; Male Contraception: Vasectomy Menstrual Tracking History Flowsheet Row Office Visit from 11/26/2024 in OB/Gynecology Appointment from 11/18/2024 in OB/Gynecology Period Cycle (Days) 4 4 Period Duration (Days) 4 4 Menstrual Flow Light Light PAST MEDICAL HISTORY Diagnosis Date Anxiety and depression Essential hypertension age 34 IFG (impaired fasting glucose) PAST SURGICAL HISTORY Procedure Laterality Date NONE FAMILY HISTORY Problem Relation Age of Onset Obesity Mother Hypertension Mother Hypertension Sister Obesity Sister Heart Attack Maternal Grandfather SOCIAL HISTORY Social History Tobacco Use Smoking status: Never Smokeless tobacco: Never Vaping Use Vaping status: Never Used Substance Use Topics Alcohol use: No Drug use: No REVIEW OF SYSTEMS Abdomen: No abdominal pain, nausea, vomiting, diarrhea, or constipation. No bloating, early satiety, indigestion, or increased flatulence. Bladder: No dysuria, gross hematuria, urinary frequency, urinary urgency, or incontinence. Breast: No breast lumps, nipple d/c, overlying skin changes, redness or skin retraction. Allergies and current medication updated:Yes SENSITIVE EXAM: The sensitive examination was discussed with the Patient or Patient's Authorized Physical Chemistry Teacher. As applicable, any other physician, advance practice provider, medical student, or other health professional student that will be observing or involved in the sensitive examination for educational or training purposes was discussed with the Patient or Authorized Physical Chemistry Teacher. The Patient or Authorized Physical Chemistry Teacher has agreed to proceed with the sensitive examination. (Sensitive examination includes inspection and/or palpation of the breasts, pelvis, prostate and anorectal regions). EXAM: BP 120/68 Ht 5' 3 (1.60m) Wt 222 lb (100.7kg) LMP 11/08/2024 BMI 39.34 kg/(m2). GENERAL: pleasant, female in no apparent distress HEENT: Normocephalic, atraumatic, mucus membranes moist, and no lesions NECK: Supple, full range of motion, no adenopathy, and thyroid normal DERMATOLOGY: Normal, without lesions, non-icteric, and non-hirsute BREAST: soft, non-tender, symmetric, no dominant mass, normal nipple-areolar complex, no lymphadenopathy, and no nipple discharge CHEST: Normal inspiratory effort ABDOMEN: soft, non-tender, and no masses PELVIC: external genitalia normal, normal Bartholin's glands, urethra, Kibler's glands, no vulvar lesions, no cervical lesions, + ectropion cervix, good vaginal support, physiologic discharge present, normal appearing perineal body and perianal region BIMANUAL: uterus normal size, shape and consistency, no adnexal masses, and non-tender RECTOVAGINAL: deferred. NEURO: alert and oriented x3,exam grossly non-focal EXTREMITIES: normal ASSESSMENT/PLAN: 1) Health maintenance: Pap/HPV up to date 2023. Mammogram ordered. Nutrition, exercise and routine health maintenance exams reviewed. HPV vaccine: interested, literature given 2) Contraception: vasectomy. 3) STD screening: Declined STD check. 4) Follow up one year or sooner as needed Dense breast - ICD9: 793.82, ICD10: R92.30 - Reviewed supplemental screening option Natalia Abdul APRN.[facility] 11-26-2024 History of Present illness Narrative Science Technicians offered: Patient declines. Hua is a 39 year old who presents for an annual gynecologic exam without complaints. Still get period: Yes, every 30 days, lasting 4 days LMP: 11/08/2024 Bleeding amount bothersome: No Bleeding between periods: No Period symptoms: Mood change control frequency: Always Contraception: Vasectomy HPV vaccine: no HPV:negative Last pap smear: 11/18/2023 normal History of abnormal pap: No Bothersome pelvic pain: No Last mammogram: 02/2024 normal OB History Gravida0 Para0 Term0 Preterm0 AB0 Living0 SAB0 IAB0 Ectopic0 Multiple0 Live Births0 Varnish Maker History LMP: 11/08/2024, Having periods Age at Menarche: 9 Age at First : Age at Menopause: Varnish Maker History Comments: Sexual Activity: Yes; Male Contraception: Vasectomy Menstrual Tracking History Flowsheet Row Office Visit from 11/26/2024 in OB/Gynecology Appointment from 11/18/2024 in OB/Gynecology Period Cycle (Days) 4 4 Period Duration (Days) 4 4 Menstrual Flow Light Light PAST MEDICAL HISTORY Diagnosis Date Anxiety and depression Essential hypertension age 34 IFG (impaired fasting glucose) PAST SURGICAL HISTORY Procedure Laterality Date NONE FAMILY HISTORY Problem Relation Age of Onset Obesity Mother Hypertension Mother Hypertension Sister Obesity Sister Heart Attack Maternal Grandfather SOCIAL HISTORY Social History Tobacco Use Smoking status: Never Smokeless tobacco: Never Vaping Use Vaping status: Never Used Substance Use Topics Alcohol use: No Drug use: No REVIEW OF SYSTEMS Abdomen: No abdominal pain, nausea, vomiting, diarrhea, or constipation. No bloating, early satiety, indigestion, or increased flatulence. Bladder: No dysuria, gross hematuria, urinary frequency, urinary urgency, or incontinence. Breast: No breast lumps, nipple d/c, overlying skin changes, redness or skin retraction. Allergies and current medication updated:Yes SENSITIVE EXAM: The sensitive examination was discussed with the Patient or Patient's Authorized Physical Chemistry Teacher. As applicable, any other physician, advance practice provider, medical student, or other health professional student that will be observing or involved in the sensitive examination for educational or training purposes was discussed with the Patient or Authorized Physical Chemistry Teacher. The Patient or Authorized Physical Chemistry Teacher has agreed to proceed with the sensitive examination. (Sensitive examination includes inspection and/or palpation of the breasts, pelvis, prostate and anorectal regions). EXAM: BP 120/68 Ht 5' 3 (1.60m) Wt 222 lb (100.7kg) LMP 11/08/2024 BMI 39.34 kg/(m^2). GENERAL: pleasant, female in no apparent distress HEENT: Normocephalic, atraumatic, mucus membranes moist, and no lesions NECK: Supple, full range of motion, no adenopathy, and thyroid normal DERMATOLOGY: Normal, without lesions, non-icteric, and non-hirsute BREAST: soft, non-tender, symmetric, no dominant mass, normal nipple-areolar complex, no lymphadenopathy, and no nipple discharge CHEST: Normal inspiratory effort ABDOMEN: soft, non-tender, and no masses PELVIC: external genitalia normal, normal Bartholin's glands, urethra, Kibler's glands, no vulvar lesions, no cervical lesions, + ectropion cervix, good vaginal support, physiologic discharge present, normal appearing perineal body and perianal region BIMANUAL: uterus normal size, shape and consistency, no adnexal masses, and non-tender RECTOVAGINAL: deferred. NEURO: alert and oriented x3,exam grossly non-focal EXTREMITIES: normal ASSESSMENT/PLAN: 1) Health maintenance: Pap/HPV up to date 2023. Mammogram ordered. Nutrition, exercise and routine health maintenance exams reviewed. HPV vaccine: interested, literature given 2) Contraception: vasectomy. 3) STD screening: Declined STD check. 4) Follow up one year or sooner as needed Dense breast - ICD9: 793.82, ICD10: R92.30 - Reviewed supplemental screening option Natalia Haury, DOUGH CATCHER.WIRE COILER MACHINE OPERATOR documented in this encounter [facility] 02-04-2024 Note Formatting of this n ote might be different from the original. February 04, 2024 PID: [id number] Hua Ayala [address] [place] [address] Dear Ms. Ayala, We are pleased to inform you that the results of your recent breast imaging exam on 02/03/2024 are normal. Your mammogram demonstrates that you have dense breast tissue, which could hide abnormalities. Dense breast tissue, in and of itself, is a relatively common condition. Therefore, this information is not provided to cause undue concern; rather, it is to raise your awareness and promote discussion with your health care provider regarding the presence of dense breast tissue in addition to other risk factors. Early detection of cancer is very important. We also understand recommendations regarding breast cancer screening are controversial. Please discuss with your primary care provider which strategy is best for you and whether a mammogram is right for you. Your imaging studies and report will be kept on file at [facility] as part of your permanent medical record and are available for your continuing care. Thank you for allowing us to help in meeting your health care needs. Sincerely, Dr. Waters Interpreting Radiologist [facility] (Normal over 40) [facility] 02-04-2024 Miscellaneous Notes February 04, 2024 PID: [id number] Hua Ayala [address] [place] [address] Dear Ms. Ayala, We are pleased to inform you that the results of your recent breast imaging exam on 02/03/2024 are normal. Your mammogram demonstrates that you have dense breast tissue, which could hide abnormalities. Dense breast tissue, in and of itself, is a relatively common condition. Therefore, this information is not provided to cause undue concern; rather, it is to raise your awareness and promote discussion with your health care provider regarding the presence of dense breast tissue in addition to other risk factors. Early detection of cancer is very important. We also understand recommendations regarding breast cancer screening are controversial. Please discuss with your primary care provider which strategy is best for you and whether a mammogram is right for you. Your imaging studies and report will be kept on file at [facility] as part of your permanent medical record and are available for your continuing care. Thank you for allowing us to help in meeting your health care needs. Sincerely, Dr. Waters Interpreting Radiologist [facility] (Normal over 40) documented in this encounter [facility] 02-03-2024 History of Present illness Narrative Radiology Service Progress Note PATIENT NAME: Hua AYALA DATE OF SERVICE: February 03, 2024 TIME: 8:27 AM PATIENT IDENTITY VERIFICATION COMPLETED USING TWO (2) IDENTIFIERS: Name and Date of confirmed by patient verbally. FALL SCREENING: Has the patient had 2 falls in the last year or 1 fall with injury or currently using an Ambulatory Assistive Device (Walker, Cane, Wheelchair, Crutches, etc.)? No PATIENT GENDER DATA: Female. status: : No status: NO. PATIENT RELEVANT IMPLANT DATA REVIEWED: Not Applicable PATIENT PRESENTS WITH AN IMPLANTABLE OR ATTACHED DIRECT SUPPORT PROFESSIONAL HOME HEALTH: No RADIOLOGY DEPARTMENT: Mammography PERIPHERAL IV DATA: Not applicable SIGNED BY: Josh Wolff February 03, 2024 8:27 AM documented in this encounter [facility] 02-03-2024 Note HNO ID: [id number] Author: GISELE ROSS Mammo Tech Service: ? Author Type: Hybrid Technologist Type: Progress Notes Filed: 02/03/2024 08:40 Note Text: Radiology Service Progress Note PATIENT NAME: Hua AYALA DATE OF SERVICE: February 03, 2024 TIME: 8:27 AM PATIENT IDENTITY VERIFICATION COMPLETED USING TWO (2) IDENTIFIERS: Name and Date of confirmed by patient verbally. FALL SCREENING: Has the patient had 2 falls in the last year or 1 fall with injury or currently using an Ambulatory Assistive Device (Walker, Cane, Wheelchair, Crutches, etc.)? No PATIENT GENDER DATA: Female. status: : No status: NO. PATIENT RELEVANT IMPLANT DATA REVIEWED: Not Applicable PATIENT PRESENTS WITH AN IMPLANTABLE OR ATTACHED DIRECT SUPPORT PROFESSIONAL HOME HEALTH: No RADIOLOGY DEPARTMENT: Mammography PERIPHERAL IV DATA: Not applicable SIGNED BY: Gisele Ross [employer] February 03, 2024 8:27 AM [facility] 11-18-2023 Instructions Natalia Abdul APRN.[facility] 11/18/2023 7:41 AM EDT Gardasil Gardasil is a vaccine to protect against Human Papillomavirus (HPV) types 6, 11, 16, 18, 31,33,45, 52, 58. These viruses cause cancer and precancerous lesions on the cervix (opening between vagina and uterus), in the vagina and on the vulva (skin around the outside of the vagina) as well as genital warts. The vaccine cannot cause these diseases and cannot treat them if already present. Gardasil works best if given before contact with HPV. Most people are exposed to HPV soon after starting sexual activity. The vaccine is recommended between the ages of 9 and 45. Gardasil does not protect against all strains of HPV. Women who receive the vaccine still need to have regular pelvic exams and cervical cancer screening with the pap smear. You should ask your doctor if Gardasil is right for you if you have a weakened immune system, a bleeding disorder, plan to become soon or have a current illness causing fever. Gardasil is not recommended for women. You should be sure your doctor is aware of any allergies you have and all medications and herbal supplements you take. Gardasil is given to those ages 9-14 in 2 doses at 0 and 8 months. In ages 15-45, three injections are given at 0,2,6 months. Common side effects include pain, redness, itching and swelling at the injection site, nausea, fever, dizziness and fainting. Rare but potentially serious reactions have been reported. These include allergic reaction, swollen glands, joint and muscle pain, weakness and Guillain-[place] syndrome. Calcium and Vitamin D Supplementation (from the National Institutes of Health Office of Dietary Supplements 2011) Calcium is required by the body for blood vessel, muscle, hormone and nerve functioning. Most of the body's calcium is stored in the bones and teeth where it supports structure and function. Bone is continuously broken down and reformed. When bone breakdown exceeds formation, especially in postmenopausal women, bone loss can increase the risk of osteoporosis and fractures. In addition to low calcium intake, women who smoke, have a family history of osteoporosis, are thin, or , or who take certain medications such as cancer chemotherapy, seizure mediations and steroids are at increased risk of osteoporosis. The calcium requirements in women change with age. The National Institutes of Health (NIH) recommends: 1000mg elemental calcium for premenopausal women age 19-50 1200mg elemental calcium for postmenopausal women and all women over 50 Milk, yogurt, and cheese are rich natural sources of calcium and are the major food contributors in the [place]. For example, 8oz of milk (whole, lowfat or skim) contains about 300mg calcium, 8oz of yogurt contains 415mg. Nondairy sources include salmon and sardines and vegetables, such as Swedish cabbage, kale, and broccoli. Foods fortified with calcium include many fruit juices, tofu and cereals. For more food calcium content information, visit http://ods.od.nih.gov/factsheets/c alcium. Calcium supplements come in several different forms. Remember that the recommendations are for millgrams (mg) of elemental calcium which may be less than the total weight of the supplement. The amount of elemental calcium is required to be printed on the label. Calcium carbonate is the least expensive form. It must be taken on a full stomach to be properly absorbed. Some patients may experience gas or constipation. Calcium phosphate and calcium citrate may be taken either with or without food and tend to have less side effects but are generally more expensive. Because of its ability to neutralize stomach acid, calcium carbonate is found in some bwee-uik-hvgozli antacid products, such as Tums and Rolaids . Depending on its strength, each chewable pill or softchew provides 200 to 400 mg of elemental calcium. The percentage of calcium absorbed depends on the total amount of elemental calcium consumed at one time. Absorption is highest in doses <500mg. So a woman who takes 1,000mg/day of calcium from supplements should split the dose and take 500mg at two separate times during the day. Too much calcium can cause kidney stones, constipation, difficulty absorbing other nutrients and calcium buildup in blood vessels. Women under 50 should not exceed 2500mg/day (2000mg/day for women over 50) of calcium from food and supplements. Excessive alcohol and caffeine intake can inhibit absorption of calcium. Calcium can reduce the absorption of some medications if taken at the same time of day (bisphosphonates, thyroid medication, Phenytoin and other seizure medications, some antibiotics and iron supplements). Vitamin D promotes calcium absorption in the gut and maintains adequate blood levels of calcium and phosphate for normal bone growth and bone remodeling. Vitamin D also helps regulate cell growth as well as nerve, muscle and immune system function. Vitamin D is produced in the skin as a result of ultraviolet sunlight rays and must be altered in the liver and kidney to become its active form. Recommended intake according to the National Institutes of Health is 600 International Units (IU) for girls and women ages 1-70 and 800 IU for women over 70. Very few foods in nature contain vitamin D. The flesh of fatty fish (such as salmon, tuna, and mackerel) and fish liver oils are among the best sources. Small amounts of vitamin D are found in beef liver, cheese, mushrooms and egg yolks. Most people meet at least some of their vitamin D needs through exposure to sunlight. Season, time of day, length of day, cloud cover, smog, skin melanin content, and sunscreen are among the factors that affect UV radiation exposure and vitamin D synthesis. Despite the importance of the sun for vitamin D synthesis, it is prudent to limit exposure of skin to sunlight and avoid tanning beds. UV radiation is a carcinogen responsible for most of the estimated 1.5 million skin cancers that occur annually in the [place]. Lifetime cumulative UV damage to skin is also responsible for some age-associated dryness and other cosmetic changes. In supplements and fortified foods, vitamin D is available in two forms, D2 (ergocalciferol) and D3 (cholecalciferol). The two are equivalent at normal supplement doses. For women who require high supplement doses because of vitamin D deficiency, D3 may work better to raise blood levels. Some medications can prevent proper absorption of Vitamin D. These include laxatives, corticosteroids like prednisone, the seizure drugs phenobarbital and phenytoin, the weight-loss drug orlistat ( Xenical and AlliTM) and the cholesterol-lowering drug cholestyramine (Questran , LoCholest , and Prevalite ). Talk to your doctor about adjusting your recommended daily vitamin D dosage if you take these medications. You should not exceed 4000 mg of vitamin D supplementation daily unless specifically prescribed by your doctor. documented in this encounter [facility] 11-18-2023 History of Present illness Narrative Hua is a 38 year old who presents for an annual gynecologic exam without complaints. Menses: cycles every 30 days and 4 days of flow. Contraception: vasectomy HPV vaccine: No Last Pap: normal 2021 HPV: negative 2021 History of abnormal pap: Yes, years ago Last mammogram: never Sexually active: Yes History of STDS: HPV, HSV Patient concerns for STD exposure: No. Pain with intercourse: No Postcoital bleeding: No Hot flashes: No Night sweats: No Vaginal dryness: No Exercise: walking OB History T0 L0 SAB0 IAB0 Ectopic0 Multiple0 Live Births0 Varnish Maker History LMP: 02/02/2023 (Exact Date), Having periods Age at Menarche: Age at First : Age at Menopause: Varnish Maker History Comments: Sexual Activity: Yes; Male Contraception: Vasectomy PAST MEDICAL HISTORY Diagnosis Date Anxiety and depression Essential hypertension age 34 IFG (impaired fasting glucose) PAST SURGICAL HISTORY Procedure Laterality Date NONE FAMILY HISTORY Problem Relation Age of Onset Obesity Mother Hypertension Mother Hypertension Sister Obesity Sister Heart Attack Maternal Grandfather SOCIAL HISTORY Social History Tobacco Use Smoking status: Never Smokeless tobacco: Never Vaping Use Vaping Use: Never used Substance Use Topics Alcohol use: No Drug use: No REVIEW OF SYSTEMS Abdomen: No abdominal pain, nausea, vomiting, diarrhea, or constipation. No bloating, early satiety, indigestion, or increased flatulence. Bladder: No dysuria, gross hematuria, urinary frequency, urinary urgency, or incontinence. Breast: No breast lumps, nipple d/c, overlying skin changes, redness or skin retraction. Allergies and current medication updated:Yes EXAM: BP 122/74 Ht 5' 3 (1.60m) Wt 208 lb (94.3kg) LMP 11/04/2023 BMI 36.85 kg/(m^2). GENERAL: pleasant, female in no apparent distress HEENT: Normocephalic, atraumatic, mucus membranes moist, and no lesions NECK: Supple, full range of motion, no adenopathy, and thyroid normal DERMATOLOGY: Normal, without lesions, non-icteric, and non-hirsute BREAST: soft, non-tender, symmetric, no dominant mass, normal nipple-areolar complex, no lymphadenopathy, and no nipple discharge CHEST: Normal inspiratory effort ABDOMEN: soft, non-tender, and no masses PELVIC: external genitalia normal, normal Bartholin's glands, urethra, Kibler's glands, no vulvar lesions, no cervical lesions, good vaginal support, physiologic discharge present, normal appearing perineal body and perianal region + ectropion cervix BIMANUAL: uterus normal size, shape and consistency, no adnexal masses, and non-tender RECTOVAGINAL: deferred. NEURO: alert and oriented x3,exam grossly non-focal EXTREMITIES: normal ASSESSMENT/PLAN: 1) Health maintenance: Pap done with HPV. Mammogram ordered. Nutrition, exercise and routine health maintenance exams reviewed. Calcium/Vitamin D supplementation information provided. Lipids/glucose: followed by PCP HPV vaccine: interested, literature given 2) Contraception: vasectomy. Contraceptive options reviewed and information provided. 3) STD screening: Declined STD check. 4) Follow up one year or sooner as needed Taking Valtrex as suppressive therapy. Has only had 1 outbreak. Opts to switch to episodic therapy. If Hua is having frequent outbreaks, considering switching back to episodic therapy. Short term prescriptions provided for Buspar and Losartan. Hua has been taking these and needs refills. To schedule PCP appointment for management of these medications. Natalia Abdul APRN.VICKI documented in this encounter [facility] 06-25-2023 Telephone encounter Note Pt was a [place] pt. She has seen Erika Clayton for weight management. Scheduled for 09/17/22 but will need prescriptions filled before that appt. Patient has been identified by name and date of : YES Patient phones for refill(s): Requested Prescriptions Pending Prescriptions Disp Refills valACYclovir (VALTREX) 1 gram Sig: Take by mouth. Date of last office visit in primary care: 02/21/2023 Date of next office visit in primary care: 09/17/2023 Last 2 Encounter Wt Readings: Date: Wt: 02/21/2023 93.4 kg (206 lb) 01/18/2023 93.4 kg (206 lb) Previous labs/tests for medication: Not applicable Please advise. Thank you. Skye Cha. [facility] Work Phone: 06-25-2023 Miscellaneous Notes Pt was a [place] pt. She has seen Erika Clayton for weight management. Scheduled for 09/17/22 but will need prescriptions filled before that appt. Patient has been identified by name and date of : YES Patient phones for refill(s): Requested Prescriptions Pending Prescriptions Disp Refills valACYclovir (VALTREX) 1 gram Sig: Take by mouth. Date of last office visit in primary care: 02/21/2023 Date of next office visit in primary care: 09/17/2023 Last 2 Encounter Wt Readings: Date: Wt: 02/21/2023 93.4 kg (206 lb) 01/18/2023 93.4 kg (206 lb) Previous labs/tests for medication: Not applicable Please advise. Thank you. Skye Cha. documented in this encounter [facility] 02-21-2023 Instructions Erika Clayton APRN.WIRE COILER MACHINE OPERATOR - 02/21/2023 10:57 AM EDT We could add naltrexone to your current buprioprion prescription to mimic a band name weight loss drug called Contrave. Here is a ling to the brand name medication: https://contrave.com/[email or web address]/ AM PM (early afternoon) Week 1 Naltrexone 12.5 mg (1/4 tablet) None Week 2 Naltrexone 12.5 mg (1/4 tablet) Naltrexone 12.5 mg (1/4 tablet) Week 3 Naltrexone 25 mg (1/2 tablet) Naltrexone 25 mg (1/4 tablet) Week 4 Naltrexone 25 mg (1/2 tablet) Naltrexone 25 mg (1/2 tablet) - Please take your bupropion as usual, these medications need to work together to formulate the desired effect. - If at anytime you feel a positive effect, you can stay at that dose and do not need to increase. - Please stop the medication if you develop symptoms that are concerning. Take low dose naltrexone to: Regulate appetite: Naltrexone helps normalize your metabolism, matching your appetite to resting energy expenditures. Reduce insulin resistance: Naltrexone modulates cellular resistance to insulin, which may lead to weight loss. Improve sleep: Lack of sleep has negative effects on your body s hormonal system, which can lead to weight gain. Naltrexone combats this unhealthy cycle. Improve mood: Combination LDN weight loss medications trigger an increase in serotonin and dopamine production, which decreases anxiety and stress and reduces emotional eating. https://www.Isent[employer].TastyKhana/na ltrexone#:~:text=Regulate%20appeti te%3A%20Naltrexone%20helps%20norma lize,may%20lead%20to%20weight%20lo ss. Does Wellbutrin cause weight loss? It can. Bupropion (the generic form of Wellbutrin) was initially prescribed as an antidepressant. It is the only antidepressant associated with weight loss (Michelle, 2019). Healthcare providers noticed that mostly pleasant side effect, and today bupropion is sometimes prescribed as part of a medication for weight loss (naltrexone/bupropion, brand name Contrave), as well as a stop-smoking aid (brand name Zyban). As far as the evidence that bupropion by itself causes weight loss: A 2016 study that analyzed the long-term weight loss effect of various antidepressant medications found that non-smokers who took bupropion lost 7.1 pounds over two years. (This effect was not seen in smokers). Users of the other antidepressants in the study gained weight (Arterburn, 2016). Bupropion seems to be effective for weight-loss maintenance as well. A 2012 study found that obese adults who took bupropion SR (standard release) in 300mg or 400mg doses lost 7.2% and 10% of their body weight, respectively, over 24 weeks and maintained that weight loss at 48 weeks (Kyle, 2012). And a 2019 review of 27 studies on antidepressants and weight gain found that antidepressant use increases body weight by an average of 5%--except bupropion, which is associated with weight loss (Michelle, 2019). https://[employer]co/health-guide/wellbut dbx-efe-ffaboc-loss/ Bupropion and naltrexone: Patient drug information Access [employer] Online for additional drug information, tools, and databases. Copyright 0127-0773 [employer]. All rights reserved. (For additional information see Bupropion and naltrexone: Drug information) Contrave (naltrexone/bupropion) Patient Information Who Is Contrave For? Contrave is a medication for chronic weight management. It is for people with overweight and weight-related complications or obesity. It is meant to be used together with a lifestyle therapy regimen involving a reduced calorie diet and increased physical activity. How Does Contrave Work? Contrave works in the brain as an appetite suppressant. Who Should Not Take Contrave? Women who are , nursing, or planning to become People who have uncontrolled high blood pressure People who have or have had seizures People with a history of eating disorders such as anorexia nervosa or bulimia People who have glaucoma or are at risk for glaucoma People who used to drink a lot of alcohol and abruptly stop drinking People who use other medications containing bupropion, such as Wellbutrin or Aplenzin People who are taking opioid pain relievers or are in opioid withdrawal, or use medicines to help stop taking opioids such as methadone or buprenorphine People who are taking a monoamine oxidase inhibitor (MAOI) now or have taken one within the past 14 days Do not take Contrave with a high fat meal. Swallow Contrave tablets whole. Do not cut, chew, or crush Contrave tablets. If you miss a dose of Contrave, wait until your next regular time to take it. Do not take more than 1 dose of Contrave at a time. Is Contrave a Controlled Substance? No, Contrave is not a controlled substance. Which Medications Might Not Be Safe to Use with Contrave? Contrave can affect how other medicines work in your body, and other medicines can affect how Contrave works. Tell your doctor about all the medicines and supplements you take, especially: Carbamazepine, phenobarbital, or phenytoin--usually given to treat seizures Efavirenz, lopinavir, or ritonavir--used to treat HIV infection Antidepressants Pain medications What Are the Most Common Side Effects of Contrave? Nausea or vomiting Dizziness Changes in the way foods taste or loss of taste Trouble sleeping Constipation or diarrhea Headache Dry mouth What Are the Possible Serious Side Effects of Contrave? Suicidal Thoughts or Actions One of the ingredients in Contrave is bupropion, which has caused some people to have suicidal thoughts or actions or unusual changes in behavior, whether or not they are taking medicines used to treat depression. If you already have depression or another mental illness, taking bupropion may cause your condition to get worse, especially within the first few months of treatment. Let your doctor know if you experience an increase in symptoms of depression, anxiety, irritability, suicidal thoughts, agitation, anger, or other unusual changes in behavior or mood. Seizures There is a risk of having a seizure when you take Contrave. The risk of seizure is higher in people who take higher doses of Contrave, have certain medical conditions, or take Contrave with certain other medicines. If you have a seizure while taking Contrave, stop taking Contrave and call your doctor right away. Do not take Contrave again if you have a seizure. 2 Contrave (naltrexone/bupropion) Patient Information Risk of Opioid Overdose One of the ingredients in Contrave (naltrexone) can increase your chance of having an opioid overdose if you take opioid medicines while taking Contrave. Opioids are common pain medications. Do not use any opioid medications while taking Contrave. Using opioids in the 7 to 10 days before you start taking Contrave may cause you to suddenly have symptoms of opioid withdrawal when you take it. Tell your doctor if you have used these medications in the past 10 days. Inform your doctor that you are taking Contrave before any medical procedure or surgery. Severe Allergic Reactions Some people have had a severe allergic reaction to bupropion, one of the ingredients in Contrave. Stop taking Contrave and call your doctor or go to the nearest hospital emergency room right away if you have signs and symptoms of an allergic reaction such as rash, itching, swelling of the lips or tongue, fever, chest pain, or trouble breathing. Increases in Blood Pressure or Heart Rate Some people may get high blood pressure or have a higher heart rate when taking Contrave. Your doctor should check your blood pressure and heart rate before you start taking Contrave and while you take it. Liver Damage or Hepatitis One of the ingredients in Contrave--naltrexone--can cause liver damage or hepatitis. Stop taking Contrave and tell your doctor if you have any signs or symptoms of liver problems such as stomach pain, dark urine, yellow eyes (jaundice), or extreme fatigue. Manic Episodes One of the ingredients in Contrave--bupropion--can cause some people who were manic or depressed in the past, or who have bipolar disease, to become manic or depressed again. Vision Problems (Angle-Closure Glaucoma) One of the ingredients in Contrave--bupropion--can cause some people to have problems with their vision (angle-closure glaucoma). Signs and symptoms of angle-closure glaucoma may include eye pain, vision changes, or swelling or redness in or around the eye. Ask your eye doctor if you are at risk for angle-closure glaucoma and do not use Contrave if you are at risk. Low Blood Sugar (Hypoglycemia) Weight loss can cause low blood sugar in people with type 2 diabetes who also take medicines used to treat type 2 diabetes (such as insulin or sulfonylureas). You should check your blood sugar before you start taking Contrave and while you take Contrave. This is not intended to be a complete list. For additional information please see the counter supervisor s website: [email or web address]. METFORMIN Dosing -- Begin Metformin 500 mg with dinner daily x 1 week. If you are experiencing any GI side effects, do not increase dose for 1-4 weeks. If tolerating, you can increase to 2 tablets with dinner daily. Taking the medication with food will help. -- if you experience any GI upset (Nausea, diarrhea, bloating, gas) you can go back to 1 tablet or hold the medication until it resolves. Once you are tolerating the medication you can try increasing it again. -- we can discuss increasing the dose further at your follow up visit. -- Metformin can interfere with the absorption of B12 in your food, please add a B12 1,000-2,400 mcg supplement and I suggest having it checked every 1-2 years Using Metformin for weight loss: Metformin helps to lower blood glucose levels by reducing the amount of glucose produced and released by the liver, and by increasing insulin sensitivity. It has now been proven to prevent or delay diabetes. Metformin and Type 2 Diabetes Prevention Diabetes Spectrum (diabetesjournals.org) Large cohort studies have shown weight loss benefits associated with metformin therapy. Emerging evidence suggests that metformin-associated weight loss is due to modulation of hypothalamic appetite-regulatory centers, alteration in the gut microbiome, and reversal of consequences of aging. Metformin is also being explored in the management of obesity s sequelae such as hepatic steatosis, obstructive sleep apnea and osteoarthritis. Effectiveness of metformin on weight loss in non-diabetic individuals with obesity - PubMed (nih.gov) Is metformin a wonder drug? - [facility] Common side effects of this medication include nausea, changes in bowel habits, abdominal discomfort, and flatulence. Taking the medication with food will help. Side effects also typically get better with time. Rarely, a severe side effect called lactic acidosis can occur. If you experience malaise, muscle aches, difficulty breathing, or severe abdominal pain, please seek immediate medical attention. Metformin: Patient drug information Warning Rarely, metformin may cause too much lactic acid in the blood (lactic acidosis). The risk is higher in people who have kidney problems, liver problems, heart failure, use alcohol, or take other drugs like topiramate. The risk is also higher in people who are 65 or older and in people who are having surgery, an exam or test with contrast, or other procedures. If lactic acidosis happens, it can lead to other health problems and can be deadly. Kidney tests may be done while taking this drug. Do not take this drug if you have a very bad infection, low oxygen, or a lot of fluid loss (dehydration). Call your doctor right away if you have signs of too much lactic acid in the blood (lactic acidosis) like fast breathing, fast or slow heartbeat, a heartbeat that does not feel normal, very bad upset stomach or throwing up, feeling very sleepy, shortness of breath, feeling very tired or weak, very bad dizziness, feeling cold, or muscle pain or cramps. What is this drug used for? It is used to lower blood sugar in patients with high blood sugar (diabetes), treatment for PCOS, What do I need to tell my doctor BEFORE I take this drug? If you are allergic to this drug; any part of this drug; or any other drugs, foods, or substances. Tell your doctor about the allergy and what signs you had. If you have any of these health problems: Acidic blood problem, kidney disease, or liver disease. If you have had a recent heart attack or stroke. If you are not able to eat or drink like normal, including before certain procedures or surgery. If you are having an exam or test with contrast or have had one within the past 48 hours, talk with your doctor. This is not a list of all drugs or health problems that interact with this drug. Tell your doctor and pharmacist about all of your drugs (prescription or OTC, natural products, vitamins) and health problems. You must check to make sure that it is safe for you to take this drug with all of your drugs and health problems. Do not start, stop, or change the dose of any drug without checking with your doctor. What are some things I need to know or do while I take this drug? All products: Tell all of your health care providers that you take this drug. This includes your doctors, nurses, pharmacists, and dentists. Talk with your doctor before you drink alcohol. Do not drive if your blood sugar has been low. There is a greater chance of you having a crash. Check your blood sugar as you have been told by your doctor. Have blood work checked as you have been told by the doctor. Talk with the doctor. It may be harder to control blood sugar during times of stress such as fever, infection, injury, or surgery. A change in physical activity, exercise, or diet may also affect blood sugar. Follow the diet and workout plan that your doctor told you about. If diarrhea happens or you are throwing up, call your doctor. You will need to drink more fluids to keep from losing too much fluid. Be careful in hot weather or while being active. Drink lots of fluids to stop fluid loss. Long-term treatment with metformin may lead to low vitamin B-12 levels. If you have ever had low vitamin B-12 levels, talk with your doctor. If you are 65 or older, use this drug with care. You could have more side effects. There is a chance of in people of childbearing age who have not been ovulating. If you want to avoid , use control while taking this drug. Tell your doctor if you are , plan on getting , or are breast-feeding. You will need to talk about the benefits and risks to you and the baby. What are some side effects that I need to call my doctor about right away? WARNING/CAUTION: Even though it may be rare, some people may have very bad and sometimes deadly side effects when taking a drug. Tell your doctor or get medical help right away if you have any of the following signs or symptoms that may be related to a very bad side effect: Signs of an allergic reaction, like rash; hives; itching; red, swollen, blistered, or peeling skin with or without fever; wheezing; tightness in the chest or throat; trouble breathing, swallowing, or talking; unusual hoarseness; or swelling of the mouth, face, lips, tongue, or throat. It is common to have stomach problems like upset stomach, throwing up, or diarrhea when you start taking this drug. If you have stomach problems later during treatment, call your doctor right away. This may be a sign of an acid health problem in the blood (lactic acidosis). Low blood sugar can happen. The chance may be raised when this drug is used with other drugs for diabetes. Signs may be dizziness, headache, feeling sleepy or weak, shaking, fast heartbeat, confusion, hunger, or sweating. Call your doctor right away if you have any of these signs. Follow what you have been told to do for low blood sugar. This may include taking glucose tablets, liquid glucose, or some fruit juices. What are some other side effects of this drug? All drugs may cause side effects. However, many people have no side effects or only have minor side effects. Call your doctor or get medical help if any of these side effects or any other side effects bother you or do not go away: Stomach pain or heartburn. Gas. Diarrhea, upset stomach, or throwing up. Feeling tired or weak. Headache. These are not all of the side effects that may occur. If you have questions about side effects, call your doctor. Call your doctor for medical advice about side effects. You may report side effects to your national health agency. How is this drug best taken? Use this drug as ordered by your doctor. Read all information given to you. Follow all instructions closely. All products: Take with meals. Keep taking this drug as you have been told by your doctor or other health care provider, even if you feel well. How alcohol affects your weight loss 1. Alcohol is often empty calories Alcoholic drinks are often referred to as empty calories. This means that they provide your body with calories but contain very little nutrients. There are almost 155 calories in one 12-ounce can of beer, and 125 calories in a 5-ounce glass of red wine. By comparison, a recommended afternoon snack should have between 150 and 200 calories. A night out with several drinks can lead to consuming a few hundred extra calories. Drinks that have mixers, such as fruit juice or soda, contain even more calories. 2. Alcohol is used as a primary source of fuel There are also other elements that can cause weight gain outside of calorie content. When alcohol is consumed, it s burned first as a fuel source before your body uses anything else. This includes glucose from carbohydrates or lipids from fats. When your body is using alcohol as a primary source of energy, the excess glucose and lipids end up, unfortunately for us, as adipose tissue, or fat. 3. Alcohol can affect your organs The primary role of your liver is to act as the filter for any foreign substances that enter your body, such as drugs and alcohol. The liver also plays a role in the metabolism of fats, carbohydrates, and proteins. Excess alcohol consumption can lead to what is known as alcoholic fatty liver. This condition can damage your liver, affecting the way your body metabolizes and stores carbohydrates and fats. Changes in the way your body stores energy from food can make it very difficult to lose weight. 4. Alcohol can contribute to excess belly fat The beer gut isn t just a myth. Foods high in simple sugars, such as those found in candy, soda, and even beer, are also high in calories. Extra calories end up stored as fat in the body. Consuming foods and drinks high in sugar can quickly lead to weight gain. We can t choose where all that extra weight ends up. But the body tends to accumulate fat in the abdominal area. 5. Alcohol affects judgment calls especially with food Even the most -hard diet fan will have a hard time fighting the urge to dig in when intoxicated. Alcohol lowers inhibitions and can lead to poor decision-making in the heat of the moment -- especially when it comes to food choices. However, the effects of alcohol surpass even social drinking etiquette. A recent animal studyTrusted Source found that mice given ethanol over a period of three days demonstrated a significant increase in food intake. This study suggests that alcohol can actually trigger hunger signals in the brain, leading to an increased urge to eat more food. 6. Alcohol and sex hormones It s long been known that alcohol intake can affect levels of hormones in the body, especially testosteroneTrusted Source. Testosterone is a sex hormone that plays a role in many metabolic processes, including muscle formation and fat burning capabilities. One study found that low testosterone levels may predict the prevalence of metabolic syndrome in men. Metabolic syndrome is characterized by: high cholesterol high blood pressure high blood sugar levels high body mass index Plus, lower testosterone levels may affect quality of sleep, especially in older men. 7. Alcohol can negatively affect your sleep A nightcap before bed may sound like a ticket to a good night s rest but you may want to reconsider. ResearchTrusted Source suggests that alcohol can lead to increased periods of wakefulness during sleep cycles. Sleep deprivation, whether from lack of sleep or impaired sleep, can lead to an imbalance in the hormones related to hunger, satiety, and energy storage. 8. Alcohol affects digestion and nutrient uptake Your social anxiety isn t the only thing that alcohol inhibits. Intake of alcoholic beverages can also inhibit proper digestive function. Alcohol can cause stress on the stomach and the intestines. This leads to decreasedTrusted Source digestive secretions and movement of food through the tract. Digestive secretions are an essential element of healthy digestion. They break down food into the basic macro- and micronutrients that are absorbed and used by the body. Alcohol intake of all levels can lead to impaired digestion and absorption of these nutrients. This can greatly affect the metabolism of organs that play a role in weight management. Best alcoholic drinks for weight loss This may all sound as if alcohol is ruining your chances of that beach body. But fear not -- watching your weight doesn t necessarily mean having to cut alcohol entirely out of your diet. Rather than reaching for drinks high in sugar or calories, enjoy some of these 100-calorie options instead: 1. Vodka Calories: 100 calories in 1.5 ounces of distilled 80-proof vodka Alternative cocktail: Choose low-calories mixers such as club soda and avoid overly sugary juices. 2. Whiskey Calories: 100 calories in 1.5 ounces of 86-proof whiskey Alternative cocktail: Ditch the cola and take your whiskey on the rocks for a low-calorie alternative. 3. Gin Calories: 115 calories in 1.5 ounces of 90-proof gin Alternative cocktail: Aim for something simple, such as a martini -- and don t skip the olives, they contain beneficial antioxidants such as vitamin E. 4. Tequila Calories: 100 calories in 1.5 ounces of tequila Alternative cocktail: The best part about tequila is that the customary tequila shot is just salt, tequila, and [place]. 5. Bebe Calories: 100 calories in 1.5 ounces of bebe Alternative cocktail: This drink is best served as an after-dinner digestif and a good bebe should be enjoyed slowly to savor the subtle fruity sweetness. The bottom line While cutting alcohol completely out of your diet isn t necessarily the only way to lose weight, there are many improvements that can be made in your health journey by simply cutting back on the booze. You can enjoy a healthier body, improved sleep, better digestion, and fewer of those excess empty calories. And if you do plan to drink, enjoy a vodka or whiskey on the rocks -- and skip the soda! https://www.NationalField/health/ aurddgr-qty-eocjrs-loss#alcohol-an u-asawbx-znsf - Whole food low-carb diet with 30 g of protein 3 times a day and 30 g of carbs at lunch and dinner only. Use tracking log as a worksheet and bring with you to your next appointment. Protein - no carbs Egg 1 large - 6g Egg white 1 large 3.6g 3 oz is approximately the size of a deck of cards and equals 21 g protein Beef, Chicken, [place], Pork, [place] 1 oz 7g Fish, Tuna Fish 1 oz 7g Seafood (Crabmeat, Shrimp, Lobster) 1 oz 6g Protein shakes (read labels) Premier Protein or generic [employer] Equate, Aldi Elevate, [employer] High Performance- 30g protein & 1g carb Fairlife 30 gram protein - 30g protein & 3g carb BOOST Glucose Control Max 30g Protein Nutritional Drink - 30g protein & 6 carb Slimfast High Protein - 20g protein & 1g carb Ensure Max Protein Nutrition Shake 30g protein & 2 carb Protein AND carbs Beef/[place] Jerky 1 oz dried 10-15g protein - check carb count, can be high if sugar added Imitation Crab Meat 1 oz - 2g protein & 4g carb Milk, skim 2% or 1% 8 oz - 8g protein & 12g carb Libyan yogurt Full Fat Libyan Yogurt 1 cup - 20.4g protein & 9.1g carb 2% Libyan Yogurt 1 cup - 22.7g protein & 9.1g carb 0% (fat-free) Libyan Yogurt - 1 cup 24g protein & 9.3g carb :ratio, KETO Friendly Dairy Snack 1 single svg - 15g protein & 2g carb :ratio Protein 1 single svg - 25g protein & 8g carb Dannon Light + Fit 1 single csvg - 12g protein & 9g carb Two Good Lowfat Libyan Yogurt, [place], Lower Sugar - 12g protein & 2g carb Oikos Triple Zero Libyan Nonfat Yogurt 1 single svg - 15g protein & 7g carb Cheese each oz Brie 5.9g protein & 0.1g carb Cheddar Cheese 7g protein & 0.4g carb Mozzarella Cheese 6.3g protein & 0.6g carb Aung Cheese 6.7g protein & 0.7g carb Parmesan Cheese 10g protein & 0.9g carb Cream Cheese 1.7g protein & 1.2g carb Feta 4g protein & 1.2g carb Lebanese Cheese 7.6g protein & 1.5g carb Dolan s Low Fat Cottage Cheese 1/2cup 12g protein & 4g carb Legumes Lentils cup 9g protein & 20g carb [place] beans cup 7g protein & 20g carb Kidney, Black, Tamora, Cannellini beans cup 8g protein & 20g carb Soybeans 1/2 c 14g protein & 8.5g carb Peanut butter, natural 2 Tbsp 7-8g protein & 4g net carbs, 190 calories [place] milk, unsweetened 8 oz 1g protein & 2g carb Soy milk 8 oz 3.5g protein & 1.6g carb Tofu 1/2 cup 10g protein & 2.3g carb Nuts and Seeds per oz Pumpkin Seeds - 6.9g protein & 5g carb Almonds - 5.9g protein & 6.1g carb Dwight Seeds - 5.8g protein & 5.6g carb Pistachios - 5.8g protein & 7.8g carb Cashews - 5.1g protein & 9.2g carb Walnuts - 4.3g protein & 3.8g carb Hazelnuts - 4.2g protein & 4.7g carb Ozone Nuts - 4.0g protein & 3.4g carb Pecans - 2.6g protein & 3.9g carb 30 High Protein Snack Ideas 1. Jerky 2. [place] mix without or minimal dried fruit 3. [place] roll-ups 4. Libyan yogurt 5. Veggies and yogurt dip 6. Tuna 7. Hard-boiled eggs 8. Peanut butter celery sticks 9. No-bake energy bites 10. Cheese slices/ Cheese Stick 11. Handful of almonds 12. Roasted chickpeas 13. Hummus and veggies 14. Cottage Cheese 15. Celery/fruit with peanut butter 16. Beef sticks (Grass-fed, natural ingredients) 17. Protein bars 18. Canned [place] 19. Benny pudding 20. Homemade granola - rolled oats, nuts, and a little sweetener - 1/4 cup serving 21. Pumpkin seeds 22. Nut butter 23. Protein shakes 24. Edamame 25. Avocado and chicken salad 26. Fruit and nut bars - natural ingredients without added sugar. 27. Lentil salad 28. Overnight oatmeal 29. Egg muffins 30. Leftover protein or lunch meat <15 gram carb fruit options Berries have the lowest sugar content 1/2 cup diced honeydew melon - 8 carbs 1/2 cup diced watermelon - 6 carbs One half medium grapefruit - 10.5 carbs 1 medium orange -15.5 carbs 1 medium peach -14.5 carbs 1/2 cup fresh cranberries - 6.5 carbs 1 medium plum -7.5 carbs 1/2 cup raspberries -7.5 carbs 1 medium Tana -9 carbs 1/2 cup fresh pineapple -11 carbs 1 medium nectarine - 15 carbs 1/2 cup blueberries - 11 carbs - may actually help you lose weight 1 medium kiwi without skin - 11 carbs 1/2 cup fresh cherries -11 carbs 1 medium tangerine -12 carbs 1/2 cup sliced elina -14 carbs 1/2 medium banana 1/2 c grapes 1/2 medium apple - 12.5 carbs 5 gram carb vegetable options 1 cup raw OR cup cooked: Asparagus Cabbage Spinach Peppers Green beans Carrots Tomato Bloomer [place] sprouts Cauliflower Lettuce Snap peas Broccoli Eggplant Zucchini Turnips Spaghetti squash 15 gram carb vegetable options cup cooked green peas cup cooked corn or hominy corn on the cob, large (5 oz) cup cooked sweet potato, plain cup cooked potato, plain 1 small potato or sweet potato 1 cup winter squash (pumpkin, acorn, butternut) 1 cup marinara or pasta sauce - check label cup tomato juice cup tomato puree Beans, Seeds, Nuts cup cooked beans (kidney, orellana, red, green, etc.) cup cooked lentils cup baked beans 4 tablespoons nut butter documented in this encounter [facility] 02-21-2023 History of Present illness Narrative Science Technicians offered: Patient declines. Some documentation from previous visit of 01/18/2023 was copied and pasted, documentation has been reviewed and edited as necessary for today's visit. Patient Summary: Hua is a 37 year old Female who presents for follow-up evaluation of obesity/weight management to treat and prevent co-morbidities of impaired fasting glucose and anxiety/depression. In our previous visits we have discussed lifestyle intervention including a nutrition recommendations and physical activity optimization. Her last office visit was 1 month ago. Assessment/plan from last visit: Bupropion started due to anxiety/depression cravings for salty crunchy and sweet foods - does not notice any changes in appetite or cravings. Weaned off buspar Contraception: vasectomy Interval History Coffee using small amount of protein shake as creamer B - Finishing protein shake OR eggs and cottage cheese S - not usually, occasionally fruit L 1100 turkey and cheese, vegies and hummus, salad with veg, 1 HB egg or lunch meat S - 3-4 days a week chips or candy or Iced coffee with small amount protein drink/SB brown sugar oat milk iced coffee D - 6 pm - protein grilling, salads. Minimizing pasta S - chips/ice cream or apple and peanut butter Fluids - coffee, water, alcohol on the weekends Exercise: increased walking more. Loses more weight with exercise in the past. Stress: stable Sleep: stable Weight loss since last vist: Date: Wt: 02/21/2023 206 lb (93.4 kg) 01/18/2023 206 lb (93.4 kg) Bupropion (Wellbutrin) Start date: ?01/18/2023 Start weight: ?206 lbs. Dose:150 mg twice daily -- Patient reports no suppression of her appetite and no increase in satiety since starting -- Patient reports no side effects after starting bupropion. Estimated Creatinine Clearance: 97.3 mL/min (based on SCr of 0.83 mg/dL). PAST MEDICAL HISTORY Diagnosis Date Anxiety and depression Essential hypertension age 34 IFG (impaired fasting glucose) Current Outpatient Medications Medication Sig Dispense Refill losartan-hydroCHLOROthiazide (HYZAAR) 100-25 mg per tablet Take 1 tablet by mouth once daily. busPIRone (BUSPAR) 5 mg tablet Take by mouth. valACYclovir (VALTREX) 1 gram Take by mouth. buPROPion SR (WELLBUTRIN SR) 150 mg 12 hr tablet Take 1 tablet by mouth twice daily. 180 tablet 0 No current facility-administered medications for this visit. ROS HTN well-controlled with hyzaar BP 112/82 Wt 206 lb (93.4 kg) LMP 02/02/2023 (Exact Date) BMI 37.43 kg/m Assessment/Plan: Hua AYALA is a 37 year old yo with Class II obesity who presented today for follow up for supervised weight loss to treat and prevent co-morbidities. ASSESSMENT/PLAN: 1. Anxiety with depression - ICD9: 300.4, ICD10: F41.8 (primary diagnosis) - NALTREXONE 50 MG TABLET 2. IFG (impaired fasting glucose) - ICD9: 790.21, ICD10: R73.01 - NALTREXONE 50 MG TABLET - METFORMIN 500 MG TABLET 3. Class 2 severe obesity with serious comorbidity and body mass index (BMI) of 37.0 to 37.9 in adult, unspecified obesity type (HCC) - ICD9: 278.01, V85.37, ICD10: E66.01, Z68.37 - weight unchanged - NALTREXONE 50 MG TABLET Agreeable to adding naltrexone to Wellbutrin to mimic the effect of Contrave. Confirmed no allergies/contraindications to naltrexone. Reviewed potential side effects. Patient will notify me if there are any adverse effects with the medication. Prescription provided today and dosing schedule provided. Patient advised to increase dose only if tolerated. Will remain on lower dose if effective. Discussed increased risk for opioid overdose if opioid medicines are taken while taking naltrexone. Aware to not use any opioid medications while taking this medication. Has not taken any opioid medication in the last 7-10 days. Will discontinue naltrexone before any medical procedure or surgery. - METFORMIN 500 MG TABLET Agreeable to begin Metformin 500 mg with dinner daily x 1 week. If tolerating will increase to 2 tablets with dinner daily. We discussed common side effects of this medication including nausea, changes in bowel habits, abdominal discomfort, and flatulence. Discussed taking it with food and complication of lactic acidosis and signs/symptoms and medication handout given. Further instructed that if he experiences malaise, muscle aches, difficulty breathing, or severe abdominal pain to seek immediate medical attention. -- Recommended low-carb diet with 30 g of protein 3 times a day and 30 g of carbs at lunch and dinner only. Given tracking log. - Given 15 gram carb whole food and protein suggestion list. - Given protein snack ideas - given information on how alcohol effects weight Follow up in 4 weeks. Erika Clayton APRN.CNP Medical Decision Making: Problems: Moderate: 1+ chronic illnesses with change Risk: Moderate: Drug management and Moderate risk from testing/treatment Medical Decision Making Level: 4 - Moderate documented in this encounter [facility] Evaluation note No assessment inform ation available [facility] Work Phone: Evaluation note Diagnosis Anxiety with depression- Primary IFG (impaired fasting glucose) Impaired fasting glucose Class 2 severe obesity with serious comorbidity and body mass index (BMI) of 37.0 to 37.9 in adult, unspecified obesity type (HCC) [facility] Diagnosis Encounter for gynecological examination (general) (routine) without abnormal findings- Primary Encounter for screening mammogram for breast cancer Cervical cancer screening Screening for malignant neoplasm of the cervix Special screening examination for human papillomavirus (HPV) [facility] Diagnosis Encounter for screening mammogram for breast cancer documented in this encounter [facility] note* Diagnosis Encounter for gynecological examination (general) (routine) without abnormal findings- Primary Encounter for screening mammogram for breast cancer Dense breast Inconclusive mammogram documented in this encounter [facility] note* Diagnosis Encounter for screening mammogram for breast cancer documented in this encounter [facility] for referral (narrative)* Diagnostic Procedure Only (Routine) - Pending Review Specialty Diagnoses / Procedures Referred By Jeannie gonzalez Referred To Contact [facility] Diagnoses Encounter for screening mammogram for breast cancer Procedures ALEX SCREENING SCREENING MAMMOGRAPHY BI 2-VIEW BREAST INC Natalia Teresa APRN.CNP [address] [place] [address] [facility] [address] [phone] Referral ID Status Reason Start Date Expiration Date Visits Requested Visits Authorized [id number] Pending Review Auto-Generat ed Referral 11/18/2023 12/17/2024 1 1 [facility] for visit Narrative* Diagnostic Procedure Only (Routine) - Authorized Specialty Diagnoses / Procedures Referred By Jeannie gonzalez Referred To Contact [facility] Diagnoses Encounter for screening mammogram for breast cancer Procedures ALEX SCREENING SCREENING MAMMOGRAPHY BI 2-VIEW BREAST INC Natalia Teresa APRN.CNP [address] [place] [address] [facility] [address] [place] [address] Referral ID Status Reason Start Date Expiration Date Visits Requested Visits Authorized [id number] Authorized Patient Cleared - Qualified 100% FAS 01/31/2024 04/30/2024 99 99 [facility] for visit Narrative* Diagnostic Procedure Only (Routine) - Closed Specialty Diagnoses / Procedures Referred By Jeannie gonzalez Referred To Contact [facility] Diagnoses Encounter for screening mammogram for breast cancer Procedures ALEX SCREENING W BALDEMAR SCREENING DIGITAL BREAST TOMOSYNTHESIS BI SCREENING MAMMOGRAPHY BI 2-VIEW BREAST INC Natalia Teresa APRN.CNP [address] [place] [address] Phone: tel: fax: [facility] [address] [place] [address] Referral ID Status Reason Start Date Expiration Date V isits Requested Visits Authorized [id number] Closed Auto-Generate d Referral 11/26/2024 12/26/2025 1 1 [facility] Summary Purpose Family History No Family History Records Found Relationship Condition Age at Onset Recorded Date/T rick Not Specified Hypertension Unknown Advance Directives No Advanced Directives Records FoundNo Advanced Directives Records Found Additional Source Comments INFORMATION SOURCE (unrecogn ized section and content) DATE CREATED AUTHOR [facility]/23/2022 [facility] DATE CREATED AUTHOR AUTHOR'S ORGANIZ ATION 01/30/2025 [facility] Goals (unrecognized section and content) Goals may be documented in a n alternate section Source Comments (unrecognize d section and content) In the event this informatio n is protected by the Federal Confidentiality of Alcohol and Drug Abuse Patient Records regulations: The Federal rules restrict any use of the information to criminally investigate or prosecute any alcohol or drug abuse patient.[facility] the event this information is protected by the Federal Confidentiality of Alcohol and Drug Abuse Patient Records regulations: The Federal rules restrict any use of the information to criminally investigate or prosecute any alcohol or drug abuse patient.[facility] the event this information is protected by the Federal Confidentiality of Alcohol and Drug Abuse Patient Records regulations: The Federal rules restrict any use of the information to criminally investigate or prosecute any alcohol or drug abuse patient.[facility] the event this information is protected by the Federal Confidentiality of Alcohol and Drug Abuse Patient Records regulations: The Federal rules restrict any use of the information to criminally investigate or prosecute any alcohol or drug abuse patient.[facility] the event this information is protected by the Federal Confidentiality of Alcohol and Drug Abuse Patient Records regulations: The Federal rules restrict any use of the information to criminally investigate or prosecute any alcohol or drug abuse patient.[facility] the event this information is protected by the Federal Confidentiality of Alcohol and Drug Abuse Patient Records regulations: The Federal rules restrict any use of the information to criminally investigate or prosecute any alcohol or drug abuse patient.[facility] the event this information is protected by the Federal Confidentiality of Alcohol and Drug Abuse Patient Records regulations: The Federal rules restrict any use of the information to criminally investigate or prosecute any alcohol or drug abuse patient.[facility] the event this information is protected by the Federal Confidentiality of Alcohol and Drug Abuse Patient Records regulations: The Federal rules restrict any use of the information to criminally investigate or prosecute any alcohol or drug abuse patient.[facility] Reason for Visit (unrecogniz ed section and content) Reason Comments Weight Management Specialty Diagnoses / Procedures Referred By Contac t Referred To Contact Diagnoses Weight loss Procedures OFFICE VISIT, NEW PT., LEVEL 1 TC new patient - no insurances - CONSULT - WEIGHT LOSS Erika Clayton APRN.WIRE COILER MACHINE OPERATOR [address] [place] [address] [facility] Dept Referral ID Status Reason Start Date Expiration Date Visits Requested Visits Authorized [id number] Authorized Patient Cleared - Qualified 100% FAS 01/02/2023 04/02/2023 99 99 Reason Comments Well Woman Specialty Diagnoses / Procedures Referred By Contac t Referred To Contact Diagnoses annual Procedures annual Self [facility] [place] [address] Referral ID Status Reason Start Date Expiration Date Visits Requested Visits Authorized [id number] Authorized Patient Cleared - Qualified 100% FAS 10/31/2023 01/29/2024 99 99 Reason Comments Refill Request Care Teams (unrecognized sec tion and content) Twisting Press Operator Relationship Specialty Start Date End Date Allison Yates [address] [place] [phone] PCP - General Obstetrics 10/13/16 Twisting Press Operator Relationship Specialty Start Date End Date Allison Yates [address] [phone] PCP - General Obstetrics 10/13/16 Twisting Press Operator Relationship Specialty Start Date End Date Allison Yates [address] [phone] PCP - General Obstetrics 10/13/16 Twisting Press Operator Relationship Specialty Start Date End Date Allison Yates [address] [phone] PCP - General Obstetrics 10/13/16 Twisting Press Operator Relationship Specialty Start Date End Date Allison Yates [address] [phone] PCP - General Obstetrics 10/13/16 Twisting Press Operator Relationship Specialty Start Date End Date Allison Yates [address] [phone] PCP - General Obstetrics 10/13/16 Twisting Press Operator Relationship Specialty Start Date End Date Allison Yates [address] [phone] PCP - General Obstetrics 10/13/16 Twisting Press Operator Relationship Specialty Start Date End Date Allison Yates [address] [phone] PCP - General Obstetrics 10/13/16 FOR RECORDS PERTAINING TO PATIENTS WHO ARE OR HAVE BEEN ENROLLED IN A CHEMICAL DEPENDENCY/SUBSTANCEABUSE PROGRAM, SOME INFORMATION MAY BE OMITTED. This clinical summary was aggregated from multiple sources. Caution should be exercised in using it in the provision of clinical care. This summary normalizes information from multiple sources, and as a consequence, information in this document may materially change the coding, format and clinical context of patient data. In addition, data may be omitted in some cases. CLINICAL DECISIONS SHOULD BE BASED ON THE PRIMARY CLINICAL RECORDS. [facility] provides no warranty or guarantee of the accuracy or completeness of information in this document.
[2025-02-13 00:37] VITALS: BP 122/61; PULSE 109; RESP 16; TEMP 37.1; O2SAT 100
== END 2025-02-13 00:40 | disposition home or self-care (01) ==
PROVIDERS: Emergency Provider Emergency Medicine; Visit Provider Emergency Medicine
DX: T40.711A Poisoning by cannabis, accidental (unintentional), initial encounter (principal)
CPT/HCPCS: 96372; 99282